=== PATIENT | female | born 1990 | race American Indian/Alaskan Native ===

== ENCOUNTER 2017-07-14 06:32 | Emergency (ER) | payer SELFPAY ==
[2017-07-14 06:46] VITALS: BP 122/81
[2017-07-14 07:11] LABS: Bacteria,Urine 4+ /HPF (Negative); Bilirubin,Urine NEG (Negative); Blood,Urine NEG (Negative); Ketones,Urine NEG (Negative); Leukocyte Esterase,Urine SM (Negative); Mucus,Urine FEW /HPF; Nitrite,Urine NEG (Negative); Protein,Urine <15 mg/dL mg/dL (Negative); Urobilinogen,Urine < 2.0 mg/dL (<2.0)
--- NOTE | 2017-07-14 18:05 | Emergency Department Report ---
Entered by WON AHUMADA, acting as scribe for ЕЛЕНА QUIJANO NP. ED Female HPI - General Chief complaint: Urogenital-Female Stated complaint: POSS UTI/RUGGIERO Time Seen by Provider: 07/14/17 09:16 Source: patient Mode of arrival: Ambulatory Limitations: No Limitations - History of Present Illness Initial comments: This is a 27 y/o female, nontoxic, well nourished in appearance, no acute signs of distress with a PMHx of asthma, sickle cell trait, and anemia presents with an urinary tract infection that began 1 month ago. Aggravated with urination and alleviated with nothing. Associated symptoms includes cloudy urine with a foul odor and dysuria, but she denies hematuria, urinary urgency and frequency, vaginal discharge, vaginal bleeding, back pain, abdominal pain, nausea, vomiting , diarrhea, fever, chills, chest pain, SOB, RUGGIERO or dizziness, numbness, and tingling. Notes she has frequent urinary tract infections, which she states these symptoms feels similar to her previous UTIs. Consumed water and cranberry juice without relief. LMP 07/11/2017. NKDA. [place] Complaint: dysuria Onset/Timin -: month(s) Location: other (vaginal area) Radiation: non-radiating Severity: mild Severity scale (0 -10): 3 Quality: burning Consistency: constant Improves with: none Worsens with: urination Are you Now?: No Last Menstrual Period: 07/11/17 EDC: 04/17/18 Associated Symptoms: denies other symptoms, dysuria, other (cloudy urine with foul odor). denies: vaginal discharge, vaginal bleeding, abdominal pain, nausea /vomiting, fever/chills, headaches, loss of appetite, hematuria, rash, seizure, shortness of breath, syncope, weakness - Related Data Previous Rx's Medication Instructions Recorded Last Taken Type Sulfamethoxazole/Trimethoprim 1 each PO BID #14 tablet 07/14/17 Unknown Rx [Bactrim DS TAB] Allergies Allergy/AdvReac Type Severity Reaction Status Date / Time No Known Allergies Allergy Verified 08/30/16 12:13 ED Review of Systems Comment: All other systems reviewed and negative Constitutional: denies: chills, fever Eyes: denies: eye pain, eye discharge, vision change ENT: denies: ear pain, throat pain Respiratory: denies: cough, orthopnea, shortness of breath, SOB with exertion, SOB at rest, stridor, wheezing Cardiovascular: denies: chest pain, palpitations, dyspnea on exertion, orthopnea , edema, syncope, paroxysmal nocturnal dyspnea Endocrine: no symptoms reported Gastrointestinal: denies: abdominal pain, nausea, vomiting, diarrhea, constipation, hematemesis, melena, hematochezia Genitourinary: dysuria, other (cloudy urine with foul odor). denies: urgency, frequency, hematuria, discharge, abnormal menses, dyspareunia Musculoskeletal: denies: back pain, joint swelling, arthralgia Skin: denies: rash, lesions Neurological: denies: headache, weakness, paresthesias Psychiatric: denies: anxiety, depression Hematological/Lymphatic: denies: easy bleeding, easy bruising ED Past Medical Hx - Past Medical History Previous Medical History?: Yes Hx Sickle Cell Disease: (trait only) Hx Asthma: Yes Additional medical history: anemia - Surgical History Past Surgical History?: No - Family History Family history: no significant - Social History Smoking Status: Current Every Day Smoker Substance Use Type: None - Medications Home Medications: Home Medications Medication Instructions Recorded Confirmed Last Taken Type Sulfamethoxazole/Trimethoprim 1 each PO BID #14 tablet 07/14/17 Unknown Rx [Bactrim DS TAB] ED Physical Exam - General Limitations: No Limitations General appearance: alert, in no apparent distress - Head Head exam: Present: atraumatic, normocephalic - Eye Eye exam: Present: normal appearance, PERRL, EOMI. Absent: scleral icterus, conjunctival injection, nystagmus, periorbital swelling, periorbital tenderness Pupils: Present: normal accommodation - ENT ENT exam: Present: normal exam, normal orophraynx, mucous membranes moist, TM's normal bilaterally, normal external ear exam - Neck Neck exam: Present: normal inspection, full ROM. Absent: tenderness, meningismus, lymphadenopathy, thyromegaly - Respiratory Respiratory exam: Present: normal lung sounds bilaterally. Absent: respiratory distress, wheezes, rales, rhonchi, stridor, chest wall tenderness, accessory muscle use, decreased breath sounds, prolonged expiratory - Cardiovascular Cardiovascular Exam: Present: regular rate, normal rhythm, normal heart sounds. Absent: bradycardia, tachycardia, irregular rhythm, systolic murmur, diastolic murmur, rubs, gallop - GI/Abdominal GI/Abdominal exam: Present: soft, normal bowel sounds. Absent: distended, tenderness, guarding, rebound, rigid - Rectal Rectal exam: Present: deferred - Extremities Exam Extremities exam: Present: normal inspection, full ROM, normal capillary refill. Absent: tenderness, pedal edema, joint swelling, calf tenderness - Back Exam Back exam: Present: normal inspection, full ROM. Absent: tenderness, CVA tenderness (R), CVA tenderness (L), muscle spasm, paraspinal tenderness, vertebral tenderness, rash noted - Neurological Exam Neurological exam: Present: alert, oriented X3, CN II-XII intact, normal gait, reflexes normal. Absent: motor sensory deficit - Psychiatric Psychiatric exam: Present: normal affect, normal mood - Skin Skin exam: Present: warm, dry, intact. Absent: rash ED Course Vital Signs 07/14/17 06:40 Temperature 98.0 F Pulse Rate 73 Respiratory 18 Rate Blood Pressure 122/81 O2 Sat by Pulse 98 Oximetry - Reevaluation(s) Reevaluation #1: 07/14/17 09:52 Patient is speaking in full sentences with no signs of distress noted. ED Disposition Clinical Impression: UTI (urinary tract infection) Qualifiers: Urinary tract infection type: site unspecified Hematuria presence: without hematuria Qualified Code(s): N39.0 - Urinary tract infection, site not specified Disposition: DC-01 TO HOME OR SELFCARE Is pt being admited?: No Does the pt Need Aspirin: No Condition: Stable Instructions: Urinary Tract Infection in Women (ED), Sulfamethoxazole/ Trimethoprim (By mouth) Additional Instructions: Follow-up with a primary care doctor to 3-5 days or if symptoms worsen continue return to emergency room as soon as possible. Prescriptions: Sulfamethoxazole/Trimethoprim [Bactrim DS TAB] 1 each PO BID #14 tablet Referrals: PRIMARY CARE, [Primary Care Provider] - 3-5 Days MOLLY DAMIAN MD [Staff Physician] - 3-5 Days [facility] [Outside] - 3-5 Days [facility] [Outside] - 3-5 Days Forms: Work/School Release Form(ED) This documentation as recorded by the BRANDYN maynard JASMINE,accurately reflects the service I personally performed and the decisions made by ,ЕЛЕНА QUIJANO, JORDANA.
== END 2017-07-14 10:07 | disposition home or self-care (01) ==
LOC: ED 06:32
DX: N39.0 Urinary tract infection, site not specified (principal); J45.909 Unspecified asthma, uncomplicated; F17.210 Nicotine dependence, cigarettes, uncomplicated
CPT/HCPCS: 81001; 81025; 99283

== ENCOUNTER 2019-01-04 22:31 | Inpatient (IN) | payer MEDICAID ==
--- NOTE | 2019-01-04 22:44 | Emergency Department Report ---
Blank Doc - Documentation Documentation: This is a 28 y.o. female that is 34 weeks . Patient spouse states he went to lock the trailer of his semi truck and she was having a seizure when he returned. Patient states she can feel the baby moving but it is slower than usual. There is swelling to upper lip. Patient collapsed to the floor of truck. Ordered labs. Main ER for further evaluation.
[2019-01-04 22:59] LABS: Hematocrit 36.9 % (30.3-42.9); Hemoglobin 12.5 gm/dl (10.1-14.3); Mean Corpuscular HGB Conc 34 % (30-34); Mean Corpuscular Volume 95 fl (79-97); Platelet Count 161 K/mm3 (140-440); Red Cell Distribution Width 14.4 % (13.2-15.2)
[2019-01-04] MEDS ORDERED: MAGNESIUM SULFATE 4GM/100ML 4 GM/100 ML BAG IV ONE (23:01)
[2019-01-04] MEDS ORDERED: APRESOLINE IV ONE (23:01)
[2019-01-04] MEDS ORDERED: MAGNESIUM SULFATE 2GM/50ML 2 GM/50 ML BAG IV ONE ×2 (23:07→23:08)
--- NOTE | 2019-01-04 23:15 | Emergency Department Report ---
ED General Adult HPI - General Chief complaint: Seizure Stated complaint: POSS. SEIZURE Time Seen by Provider: 01/04/19 22:39 Source: patient Mode of arrival: Wheelchair Limitations: Altered Mental Status - History of Present Illness Initial comments: Patient is a 28-year-old female 5 para 4, possibly 35 weeks . Patient care with doctor at [facility]. Patient is riding with her boyfriend, he stated that he stepped down and when he came back patient has a full seizure and patient was on the floor of the truck. Patient denied any history of seizure before. A diagnosis of possible eclampsia has met by me. Patient immediately moved to [facility] in the emergency room. His seizure precaution started. cardiac monitor applied. Patient received 4 g of magnesium sulfate. Hydralazine 10 mg IV given. I immediately consulted and talked to Dr. Mac. Dr. Mac stated that she is on her way to see the patient. No seizure activity noticed in the emergency room but patient is obviously postictal. Severity scale (0 -10): 0 - Related Data Previous Rx's Medication Instructions Recorded Last Taken Type Sulfamethoxazole/Trimethoprim 1 each PO BID #14 tablet 07/14/17 Unknown Rx [Bactrim DS TAB] Allergies Allergy/AdvReac Type Severity Reaction Status Date / Time No Known Allergies Allergy Verified 08/30/16 12:13 ED Review of Systems ROS: Stated complaint: POSS. SEIZURE Other details as noted in HPI Comment: All other systems reviewed and negative Constitutional: denies: chills, fever Respiratory: denies: cough, orthopnea, shortness of breath, SOB with exertion, SOB at rest, wheezing Cardiovascular: denies: chest pain, palpitations Gastrointestinal: denies: abdominal pain, nausea, vomiting, diarrhea Genitourinary: denies: hematuria Neurological: denies: headache ED Past Medical Hx - Past Medical History Hx Sickle Cell Disease: (trait only) Hx Asthma: Yes Additional medical history: anemia - Surgical History Past Surgical History?: No - Social History Smoking Status: Never Smoker Substance Use Type: None - Medications Home Medications: Home Medications Medication Instructions Recorded Confirmed Last Taken Type Sulfamethoxazole/Trimethoprim 1 each PO BID #14 tablet 07/14/17 Unknown Rx [Bactrim DS TAB] ED Physical Exam - General Limitations: Altered Mental Status General appearance: alert, anxious, postictal - Head Head exam: Present: atraumatic - ENT ENT exam: Present: mucous membranes moist, other (upper lip swelling) - Neck Neck exam: Present: normal inspection, full ROM. Absent: tenderness, meningismus, lymphadenopathy, thyromegaly - Respiratory Respiratory exam: Present: normal lung sounds bilaterally. Absent: respiratory distress, wheezes, rales, rhonchi, chest wall tenderness, accessory muscle use, decreased breath sounds, prolonged expiratory - Cardiovascular Cardiovascular Exam: Present: tachycardia - GI/Abdominal GI/Abdominal exam: Present: soft, normal bowel sounds, organomegaly. Absent: distended, tenderness, guarding, rebound, rigid - Extremities Exam Extremities exam: Present: normal inspection, full ROM - Back Exam Back exam: Present: normal inspection, full ROM. Absent: CVA tenderness (L) - Neurological Exam Neurological exam: Present: alert, altered - Skin Skin exam: Present: warm, intact ED Course Vital Signs 01/04/19 01/04/19 01/04/19 22:40 23:19 23:50 Temperature 98.8 F Pulse Rate 128 H 80 97 H Respiratory 20 19 Rate Blood Pressure 156/104 137/97 Blood Pressure 139/83 [Left] O2 Sat by Pulse 99 99 Oximetry 01/05/19 01/05/19 01/05/19 00:30 00:36 00:50 Temperature Pulse Rate 93 H 81 Respiratory 17 19 20 Rate Blood Pressure 165/99 Blood Pressure 156/101 [Left] O2 Sat by Pulse 96 99 Oximetry ED Medical Decision Making - Lab Data Result diagrams: 01/04/19 23:06 01/04/19 22:45 Critical Care Time: Yes Critical care time in (mins) excluding proc time.: 30 Critical care attestation.: If time is entered above; I have spent that time in minutes in the direct care of this critically ill patient, excluding procedure time. ED Disposition Clinical Impression: Eclampsia affecting in third trimester, 33 weeks gestation of pregnan cy Disposition: -09 OP ADMIT IP TO THIS HOSP Is pt being admited?: Yes Condition: Stable
[2019-01-04 23:20] LABS: BUN/Creatinine Ratio 11; Blood Urea Nitrogen 11 mg/dL (7-17); Calcium 9.4 mg/dL (8.4-10.2); Hemolysis Index 9
[2019-01-04 23:42] LABS: Basophils # (Auto) 0.1 K/mm3 (0.0-0.1); Basophils % (Auto) 0.9 % (0.0-1.8); Eosinophils # (Auto) 0.1 K/mm3 (0.0-0.4); Eosinophils % (Auto) 0.8 % (0.0-4.3); Hemoglobin 11.3 gm/dl (10.1-14.3); Lymphocytes # (Auto) 2.3 K/mm3 (1.2-5.4); Lymphocytes % (Auto) 28.9 % (13.4-35.0); Mean Corpuscular HGB Conc 34 % (30-34); Mean Corpuscular Volume 93 fl (79-97); Monocytes # (Auto) 0.5 K/mm3 (0.0-0.8); Monocytes % (Auto) 6.3 % (0.0-7.3); Platelet Count 150 K/mm3 (140-440); Red Blood Count 3.55 M/mm3 (3.65-5.03); Red Cell Distribution Width 14.1 % (13.2-15.2)
[2019-01-04 23:46] LABS: Alanine Aminotransferase 30 units/L (7-56); Albumin 3.3 g/dL (3.9-5)
[2019-01-04 23:53] LABS: INR 0.83 (0.87-1.13)
[2019-01-04 23:56] LABS: Bilirubin,Direct < 0.2 mg/dL (0-0.2)
[2019-01-04 23:58] LABS: Partial Thromboplastin Time 25.6 Sec. (24.2-36.6)
--- NOTE | 2019-01-05 00:07 | Ultrasound Report ---
FINAL REPORT EXAM: US OB > = 14 WEEKS FETUS HISTORY: , possible 30 weeks, eclampsia COMPARISON: None available. TECHNIQUE: Several real-time grayscale and color Doppler images were obtained. FINDINGS: Single live IUP. Estimated gestational age 33 weeks 0 days. Estimated delivery date February 22, 2019. F etal heart rate 138 beats per minute. Estimated gestational age 1924 grams. BPD 8.3 centimeters 33 weeks 4 days. Head circumference 30.2 centimeters 33 weeks 4 days. Abdominal circumference 26.6 centimeters 30 weeks 5 days. New 9 femoral length 6.6 centimeters 33 wee ks 6 days. position cephalic. Placenta location posterior. No placenta previa. Cervix is closed and measur es 4.1 centimeters in length. SIENNA within normal limits 8.7 centimeters. Visualized heart, stomach, urinary bladder, kidneys, cerebral ventricles are unremarkable. Thre e-vessel umbilical cord identified. Abdominal cord insertion not visualized. Entire spine not visuali zed. IMPRESSION: Single live IUP. Estimated gestational age 33 weeks 0 days. Estimated delivery date February 22, 2019. No gross or placental abnormality. Evaluation of structures somewhat limited due to late gestational age.
--- NOTE | 2019-01-05 00:11 | History and Physical Report ---
History of Present Illness Date of examination: 01/05/19 Date of admission: 01/05/19 Chief complaint: seizure History of present illness: Pt admitted to ED after having seizure witnessed by sixto while when he returned to care to see pt on floor having seizure. He was not at the bedside when I spoke with pt. She states she remembers her head turning to the left side without her control and does not remember after this. She states she passed out. [facility] gives EDC of 02/22/2019 and EGA of 33.0 weeks. Pt did not give me an EDC at my initial interview with her. She has no h/o seizures. BP was elevated on admission at 156/104 but currently is 137/97 after having hydralazine and 4g load of magnesium. All PIH labs are n egative. UA still is uncollected at this time. Will admit pt , given steroids and plan for delivery. Pt has had all vaginal deliveries and fetus is vtx on sono done tonight/this am. I have d/w the diagnosis of eclampsia, pre eclampsia given the elevated blood pressures and no h/o HTN. There was no mention of abruption on sono. Pt tearful as she states "it is too early for the baby to come." However, she was reassurred and advised that if the BP are not controlled that delivery is the only option to treat the pre e/eclampsia. She expressed understanding. Pt is a . She is oriented to place and person at time of my interview and all questions were addressed and answered. 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: denies: abnormal PAP smear Social history: no significant social history - Obstetrical History Expected Date of Delivery: 02/22/19 (by sono done in ED) Actual Gestation: 33 Week(s) 1 Day(s) : 5 Para: 4 Number of Living Children: 4 (all vaginal full term no complications as per pt) Medications and Allergies Allergies Allergy/AdvReac Type Severity Reaction Status Date / Time No Known Allergies Allergy Verified 08/30/16 12:13 Home Medications Medication Instructions Recorded Confirmed Last Taken Type Sulfamethoxazole/Trimethoprim 1 each PO BID #14 tablet 07/14/17 Unknown Rx [Bactrim DS TAB] Active Meds: Active Medications Magnesium Sulfate (Magnesium Sulfate 4gm/100ml) 4 gm in 100 mls @ 25 mls/hr IV ONCE ONE Stop: 01/05/19 03:00 Last Admin: 01/04/19 23:19 Dose: 25 mls/hr Documented by: Review of Systems All systems: negative - Vital Signs Vital signs: Vital Signs Temp Pulse Resp BP Pulse Ox 98.8 F 128 H 20 156/104 99 01/04/19 22:40 01/04/19 22:40 01/04/19 22:40 01/04/19 22:40 01/04/19 22:40 Temp Pulse Resp BP Pulse Ox 98.8 F 80 20 137/97 99 01/04/19 22:40 01/04/19 23:19 01/04/19 22:40 01/04/19 23:19 01/04/19 22:40 - Physical Exam Cardiovascular: Normal S1, Normal S2 Lungs: Positive: Normal air movement Abdomen: Positive: normal appearance, soft Genitourinary (Female): Positive: other (deferred pt denied any bleeding or leakage of fluid) Extremities: Positive: normal. Negative: tenderness, edema - Obstetrical FHR: other (normal on sonogram) Results Result Diagrams: 01/04/19 23:06 01/04/19 22:45 Abnormal lab results 01/04/19 01/04/19 01/04/19 Range/Units 22:45 23:06 23:06 RBC 3.55 L (3.65-5.03) M/mm3 PT (12.2-14.9) Sec. INR (0.87-1.13) Sodium 136 L (137-145) mmol/L Carbon Dioxide 15 L (22-30) mmol/L Alkaline Phosphatase 150 H (35-129) units/L Albumin 3.3 L (3.9-5) g/dL 01/04/19 Range/Units 23:06 RBC (3.65-5.03) M/mm3 PT 11.9 L (12.2-14.9) Sec. INR 0.83 L (0.87-1.13) Sodium (137-145) mmol/L Carbon Dioxide (22-30) mmol/L Alkaline Phosphatase (35-129) units/L Albumin (3.9-5) g/dL All other labs normal. Assessment and Plan - Patient Problems (1) 33 weeks gestation of Current Visit: Yes Status: Acute (2) Seizure Current Visit: Yes Status: Acute (3) Eclampsia affecting in third trimester Current Visit: Yes Status: Acute Plan to address problem: -admit -vtx on sonogram -NICU consult - steroids -continued close observation. -attempt to obtain records
[2019-01-05] MEDS ORDERED: MINERAL OIL PO PRN (00:14)
[2019-01-05] MEDS ORDERED: XYLOCAINE 2% INFILTRATI ONE (00:14)
[2019-01-05] MEDS ORDERED: BRETHINE SUB-Q PRN (00:14)
[2019-01-05] MEDS ORDERED: BRETHINE IVP PRN (00:14)
[2019-01-05] MEDS ORDERED: CERVIDIL VG ONE (00:55)
--- NOTE | 2019-01-05 00:58 | Event Note ---
Date: 01/05/19 Given pt h/o seems to be c/w having new onset seizures in addition to blood pressures in the sever range, will proceed with IOL at this time for eclampsia. Will place cervidil as pt has had 4 other vaginal deliveries and sono shows baby is VTX. I d/w need for IOL due to her clinical status and her gestational age during my initial interview with pt in the ED. She expressed understanding.
[2019-01-05] MEDS ORDERED: NORMODYNE IV ONE (00:59)
[2019-01-05] MEDS ORDERED: NORMODYNE PO SCH (01:00)
[2019-01-05] MEDS ORDERED: CELESTONE SOLUSPAN IM SCH (01:00)
[2019-01-05] MEDS ORDERED: PITOCin/NS 20 UNIT/1000ML DRIP 20 UNITS/1,000 ML BAG IV SCH (01:00)
[2019-01-05] MEDS ORDERED: PITOCin/NS 30 UNIT/500ML 30 UNITS/500 ML BAG IV SCH (01:00)
[2019-01-05 01:32] LABS: Amphetamine Screen,Urine PRESUMPTIVE NEGATIVE; Benzodiazepines Screen,Urine PRESUMPTIVE NEGATIVE; Cannabinoid Screen,Urine PRESUMPTIVE NEGATIVE; Cocaine Screen,Urine PRESUMPTIVE NEGATIVE; Methadone Screen,Urine PRESUMPTIVE NEGATIVE; Opiate Screen,Urine PRESUMPTIVE NEGATIVE
[2019-01-05] MEDS: LACTATED RINGERS 1,000 ML IV SCH ×2 (02:10→12:17)
[2019-01-05] MEDS: MAGNESIUM SULFATE 40GM/1000ML 40 GM/1,000 ML BAG IV SCH (02:11)
[2019-01-05 03:51] LABS: Bilirubin,Urine NEG (Negative); Blood,Urine NEG (Negative); Color,Urine Yellow (Yellow); Mucus,Urine FEW /HPF
[2019-01-05] MEDS ORDERED: AMPICILLIN/NS 2 GM/100 ML 2 GM/100 ML BAG IV ONE (06:44)
--- NOTE | 2019-01-05 08:09 | Progress Note ---
Assessment and Plan - Patient Problems (1) 35 weeks gestation of Current Visit: Yes Status: Acute Plan to address problem: Will attempt to obtain records from her previous provider (2) Eclampsia affecting in third trimester Current Visit: Yes Status: Acute Plan to address problem: Diagnosis explained, plan of care discussed, questions encouraged and answered. She voiced understanding and agrees with proceeding with delivery. Subjective - Subjective Date of service: 01/05/19 Interval history: History reviewed with patient Patient reports: movement normal, contractions, no new complaints Objective - Vital Signs Vital Signs: Vital Signs - 12hr 01/04/19 01/04/19 01/04/19 22:40 23:19 23:50 Temperature 98.8 F Pulse Rate 128 H 80 97 H Respiratory 20 19 Rate Blood Pressure 156/104 137/97 Blood Pressure 139/83 [Left] O2 Sat by Pulse 99 99 Oximetry 01/05/19 01/05/19 01/05/19 00:30 00:36 00:50 Temperature Pulse Rate 93 H 81 Respiratory 17 19 20 Rate Blood Pressure 165/99 Blood Pressure 156/101 [Left] O2 Sat by Pulse 96 99 Oximetry 01/05/19 01/05/19 01/05/19 01:26 02:02 02:45 Temperature Pulse Rate 81 88 97 H Respiratory Rate Blood Pressure 156/100 140/88 132/86 Blood Pressure [Left] O2 Sat by Pulse Oximetry 01/05/19 01/05/19 01/05/19 02:59 03:14 03:29 Temperature Pulse Rate 95 H 108 H 89 Respiratory Rate Blood Pressure 132/83 175/99 159/96 Blood Pressure [Left] O2 Sat by Pulse Oximetry 01/05/19 01/05/19 01/05/19 03:30 03:44 03:59 Temperature Pulse Rate 88 95 H 81 Respiratory Rate Blood Pressure 146/94 152/95 156/96 Blood Pressure [Left] O2 Sat by Pulse Oximetry 01/05/19 01/05/19 01/05/19 04:15 04:29 04:44 Temperature Pulse Rate 80 76 78 Respiratory Rate Blood Pressure 176/102 137/75 133/73 Blood Pressure [Left] O2 Sat by Pulse Oximetry 01/05/19 01/05/19 01/05/19 04:59 05:14 05:30 Temperature Pulse Rate 85 83 87 Respiratory Rate Blood Pressure 125/68 160/91 143/81 Blood Pressure [Left] O2 Sat by Pulse Oximetry 01/05/19 01/05/19 01/05/19 05:44 05:59 06:14 Temperature Pulse Rate 89 95 H 95 H Respiratory Rate Blood Pressure 149/84 150/87 152/99 Blood Pressure [Left] O2 Sat by Pulse Oximetry 01/05/19 01/05/19 01/05/19 06:29 06:44 07:00 Temperature Pulse Rate 97 H 96 H 102 H Respiratory Rate Blood Pressure 135/86 134/83 152/96 Blood Pressure [Left] O2 Sat by Pulse Oximetry 01/05/19 01/05/19 01/05/19 07:14 07:29 07:45 Temperature Pulse Rate 101 H 96 H 102 H Respiratory Rate Blood Pressure 137/86 142/85 150/97 Blood Pressure [Left] O2 Sat by Pulse Oximetry 01/05/19 01/05/19 07:49 07:59 Temperature Pulse Rate 96 H 93 H Respiratory Rate Blood Pressure 130/78 153/90 Blood Pressure [Left] O2 Sat by Pulse Oximetry - Exam Breasts: deferred Cardiovascular: Regular rate Lungs: Normal air movement Abdomen: Present: soft. Absent: tenderness Vulva: both: normal Uterus: Present: fundal height above umbilicus. Absent: tenderness FHR: category 1 Cervical Dilatation: 4 Cervical Effacement Percentage: 70 station: -2 Uterine Contraction Pattern: Absent Extremities: normal Deep Tendon Reflex Grade: Normal +2 - Labs Labs: Abnormal Labs 01/04/19 01/04/19 01/04/19 22:45 23:06 23:06 RBC 3.55 L PT INR Sodium 136 L Carbon Dioxide 15 L Magnesium Alkaline Phosphatase 150 H Lactate Dehydrogenase Albumin 3.3 L 01/04/19 01/04/19 01/05/19 23:06 23:06 06:14 RBC PT 11.9 L INR 0.83 L Sodium Carbon Dioxide Magnesium 5.40 H Alkaline Phosphatase Lactate Dehydrogenase 249 H Albumin Laboratory Results - last 24 hr 01/04/19 01/04/19 01/04/19 22:45 22:45 23:06 WBC 9.6 7.9 RBC 3.90 3.55 L Hgb 12.5 11.3 Hct 36.9 33.0 MCV 95 93 MCH 32 32 MCHC 34 34 RDW 14.4 14.1 Plt Count 161 150 Lymph % (Auto) 28.9 [place] % (Auto) 6.3 Eos % (Auto) 0.8 Baso % (Auto) 0.9 Lymph # 2.3 [place] # 0.5 Eos # 0.1 Baso # 0.1 Seg Neutrophils % 63.1 Seg Neutrophils # 5.0 PT INR APTT Sodium 136 L Potassium 4.1 Chloride 101.3 Carbon Dioxide 15 L Anion Gap 24 BUN 11 Creatinine 1.0 Estimated GFR > 60 BUN/Creatinine Ratio 11 Glucose 82 POC Glucose Calcium 9.4 Magnesium Total Bilirubin Direct Bilirubin AST ALT Alkaline Phosphatase Lactate Dehydrogenase Total Protein Albumin Albumin/Globulin Ratio Urine Color Urine Turbidity Urine pH Ur Specific [place] Urine Protein Urine Glucose (UA) Urine Ketones Urine Blood Urine Nitrite Urine Bilirubin Urine Urobilinogen Ur Leukocyte Esterase Urine WBC (Auto) Urine RBC (Auto) U Epithel Cells (Auto) Urine Mucus Urine Opiates Screen Urine Methadone Screen Ur Barbiturates Screen Ur Phencyclidine Scrn Ur Amphetamines Screen U Benzodiazepines Scrn Urine Cocaine Screen U Marijuana (THC) Screen Drugs of Abuse Note Blood Type Antibody Screen Antibody Identification 01/04/19 01/04/19 01/04/19 23:06 23:06 23:06 WBC RBC Hgb Hct MCV MCH MCHC RDW Plt Count Lymph % (Auto) [place] % (Auto) Eos % (Auto) Baso % (Auto) Lymph # [place] # Eos # Baso # Seg Neutrophils % Seg Neutrophils # PT 11.9 L INR 0.83 L APTT 25.6 Sodium Potassium Chloride Carbon Dioxide Anion Gap BUN Creatinine Estimated GFR BUN/Creatinine Ratio Glucose POC Glucose Calcium Magnesium Total Bilirubin 0.40 Direct Bilirubin < 0.2 AST 29 ALT 30 Alkaline Phosphatase 150 H Lactate Dehydrogenase 249 H Total Protein 6.6 Albumin 3.3 L Albumin/Globulin Ratio 1.0 Urine Color Urine Turbidity Urine pH Ur Specific [place] Urine Protein Urine Glucose (UA) Urine Ketones Urine Blood Urine Nitrite Urine Bilirubin Urine Urobilinogen Ur Leukocyte Esterase Urine WBC (Auto) Urine RBC (Auto) U Epithel Cells (Auto) Urine Mucus Urine Opiates Screen Urine Methadone Screen Ur Barbiturates Screen Ur Phencyclidine Scrn Ur Amphetamines Screen U Benzodiazepines Scrn Urine Cocaine Screen U Marijuana (THC) Screen Drugs of Abuse Note Blood Type Antibody Screen Antibody Identification 01/04/19 01/04/19 01/05/19 23:11 23:40 01:00 WBC RBC Hgb Hct MCV MCH MCHC RDW Plt Count Lymph % (Auto) [place] % (Auto) Eos % (Auto) Baso % (Auto) Lymph # [place] # Eos # Baso # Seg Neutrophils % Seg Neutrophils # PT INR APTT Sodium Potassium Chloride Carbon Dioxide Anion Gap BUN Creatinine Estimated GFR BUN/Creatinine Ratio Glucose POC Glucose 83 Calcium Magnesium Total Bilirubin Direct Bilirubin AST ALT Alkaline Phosphatase Lactate Dehydrogenase Total Protein Albumin Albumin/Globulin Ratio Urine Color Urine Turbidity Urine pH Ur Specific [place] Urine Protein Urine Glucose (UA) Urine Ketones Urine Blood Urine Nitrite Urine Bilirubin Urine Urobilinogen Ur Leukocyte Esterase Urine WBC (Auto) Urine RBC (Auto) U Epithel Cells (Auto) Urine Mucus Urine Opiates Screen Presumptive negative Urine Methadone Screen Presumptive negative Ur Barbiturates Screen Presumptive negative Ur Phencyclidine Scrn Presumptive negative Ur Amphetamines Screen Presumptive negative U Benzodiazepines Scrn Presumptive negative Urine Cocaine Screen Presumptive negative U Marijuana (THC) Screen Presumptive negative Drugs of Abuse Note Disclamer Blood Type O NEGATIVE Antibody Screen Positive Antibody Identification Anti-D (Actively Aquired) 01/05/19 01/05/19 01:09 06:14 WBC RBC Hgb Hct MCV MCH MCHC RDW Plt Count Lymph % (Auto) [place] % (Auto) Eos % (Auto) Baso % (Auto) Lymph # [place] # Eos # Baso # Seg Neutrophils % Seg Neutrophils # PT INR APTT Sodium Potassium Chloride Carbon Dioxide Anion Gap BUN Creatinine Estimated GFR BUN/Creatinine Ratio Glucose POC Glucose Calcium Magnesium 5.40 H Total Bilirubin Direct Bilirubin AST ALT Alkaline Phosphatase Lactate Dehydrogenase Total Protein Albumin Albumin/Globulin Ratio Urine Color Yellow Urine Turbidity Clear Urine pH 5.0 Ur Specific [place] 1.012 Urine Protein 30 mg/dl Urine Glucose (UA) Neg Urine Ketones Neg Urine Blood Neg Urine Nitrite Neg Urine Bilirubin Neg Urine Urobilinogen 2.0 Ur Leukocyte Esterase Neg Urine WBC (Auto) 1.0 Urine RBC (Auto) 1.0 U Epithel Cells (Auto) < 1.0 Urine Mucus Few Urine Opiates Screen Urine Methadone Screen Ur Barbiturates Screen Ur Phencyclidine Scrn Ur Amphetamines Screen U Benzodiazepines Scrn Urine Cocaine Screen U Marijuana (THC) Screen Drugs of Abuse Note Blood Type Antibody Screen Antibody Identification
[2019-01-05] MEDS ORDERED: AMPICILLIN/NS 1 GM/50 ML 1 GM/50 ML BAG IV SCH (10:00)
[2019-01-05] MEDS ORDERED: NARCAN 2 MG/2 ML IV PRN (10:30)
[2019-01-05] MEDS ORDERED: fentaNYL-BUPIV 2 MCG/ML-0.125% 200 MCG/100 ML BAG EPIDURAL SCH (11:00)
[2019-01-05 11:01] LABS: Hematocrit 33.7 % (30.3-42.9); Hemoglobin 11.4 gm/dl (10.1-14.3); Mean Corpuscular HGB Conc 34 % (30-34); Mean Corpuscular Volume 93 fl (79-97); Platelet Count 155 K/mm3 (140-440); Red Blood Count 3.64 M/mm3 (3.65-5.03); Red Cell Distribution Width 14.5 % (13.2-15.2)
[2019-01-05] MEDS ORDERED: LIDOCAINE 1.5%/EPI 1:200,000 INFILTRATI ONE (11:53)
[2019-01-05] MEDS ORDERED: SUBLIMAZE ONE (11:55)
[2019-01-05] MEDS ORDERED: BICITRA ONE (12:05)
--- NOTE | 2019-01-05 13:19 | Progress Note ---
Assessment and Plan BP 140/ 90-80 Denies any RUGGIERO, blurred vision, chest pain. Pit @ 8mu will increase per protocol SVE cervix is more anterior than previous exam 4,70,-2 Comfortable with epidural, Re-eval as needed Subjective - Subjective Date of service: 01/05/19 (comfortable with epidural) Principal diagnosis: s/p eclamptic seizure @ 34.6 weeks Patient reports: movement normal, contractions, no new complaints Objective - Vital Signs Vital Signs: Vital Signs - 12hr 01/05/19 01/05/19 01/05/19 01:26 02:02 02:45 Pulse Rate 81 88 97 H Blood Pressure 156/100 140/88 132/86 O2 Sat by Pulse Oximetry 01/05/19 01/05/19 01/05/19 02:59 03:14 03:29 Pulse Rate 95 H 108 H 89 Blood Pressure 132/83 175/99 159/96 O2 Sat by Pulse Oximetry 01/05/19 01/05/19 01/05/19 03:30 03:44 03:59 Pulse Rate 88 95 H 81 Blood Pressure 146/94 152/95 156/96 O2 Sat by Pulse Oximetry 01/05/19 01/05/19 01/05/19 04:15 04:29 04:44 Pulse Rate 80 76 78 Blood Pressure 176/102 137/75 133/73 O2 Sat by Pulse Oximetry 01/05/19 01/05/19 01/05/19 04:59 05:14 05:30 Pulse Rate 85 83 87 Blood Pressure 125/68 160/91 143/81 O2 Sat by Pulse Oximetry 01/05/19 01/05/19 01/05/19 05:44 05:59 06:14 Pulse Rate 89 95 H 95 H Blood Pressure 149/84 150/87 152/99 O2 Sat by Pulse Oximetry 01/05/19 01/05/19 01/05/19 06:29 06:44 07:00 Pulse Rate 97 H 96 H 102 H Blood Pressure 135/86 134/83 152/96 O2 Sat by Pulse Oximetry 01/05/19 01/05/19 01/05/19 07:14 07:29 07:45 Pulse Rate 101 H 96 H 102 H Blood Pressure 137/86 142/85 150/97 O2 Sat by Pulse Oximetry 01/05/19 01/05/19 01/05/19 07:49 07:59 08:14 Pulse Rate 96 H 93 H 93 H Blood Pressure 130/78 153/90 123/80 O2 Sat by Pulse Oximetry 01/05/19 01/05/19 01/05/19 08:29 08:44 08:57 Pulse Rate 95 H 97 H 98 H Blood Pressure 131/84 128/79 O2 Sat by Pulse 97 Oximetry 01/05/19 01/05/19 01/05/19 09:00 09:02 09:08 Pulse Rate 89 93 H 87 Blood Pressure 144/88 O2 Sat by Pulse 98 98 Oximetry 01/05/19 01/05/19 01/05/19 09:13 09:14 09:18 Pulse Rate 85 83 81 Blood Pressure 128/72 O2 Sat by Pulse 97 97 Oximetry 01/05/19 01/05/19 01/05/19 09:23 09:28 09:29 Pulse Rate 84 85 85 Blood Pressure 136/78 O2 Sat by Pulse 96 97 94 Oximetry 01/05/19 01/05/19 01/05/19 09:33 09:38 09:43 Pulse Rate 83 80 83 Blood Pressure O2 Sat by Pulse 97 97 97 Oximetry 01/05/19 01/05/19 01/05/19 09:44 09:48 09:53 Pulse Rate 81 84 92 H Blood Pressure 123/70 O2 Sat by Pulse 97 98 Oximetry 01/05/19 01/05/19 01/05/19 09:58 09:59 10:03 Pulse Rate 96 H 93 H Blood Pressure 132/78 O2 Sat by Pulse 95 86 Oximetry 01/05/19 01/05/19 01/05/19 10:04 10:08 10:10 Pulse Rate 94 H 86 89 Blood Pressure O2 Sat by Pulse 90 96 94 Oximetry 01/05/19 01/05/19 01/05/19 10:13 10:14 10:47 Pulse Rate 89 86 85 Blood Pressure 131/79 140/85 O2 Sat by Pulse 96 97 Oximetry 01/05/19 01/05/19 01/05/19 10:52 10:57 10:59 Pulse Rate 84 85 79 Blood Pressure 136/80 O2 Sat by Pulse 97 99 Oximetry 01/05/19 01/05/19 01/05/19 11:02 11:07 11:12 Pulse Rate 89 85 82 Blood Pressure O2 Sat by Pulse 98 97 96 Oximetry 01/05/19 01/05/19 01/05/19 11:14 11:17 11:22 Pulse Rate 83 82 78 Blood Pressure 129/77 O2 Sat by Pulse 96 96 Oximetry 01/05/19 01/05/19 01/05/19 11:27 11:30 11:32 Pulse Rate 84 79 83 Blood Pressure 130/74 O2 Sat by Pulse 95 95 Oximetry 01/05/19 01/05/19 01/05/19 11:37 11:42 11:44 Pulse Rate 84 85 78 Blood Pressure 134/77 O2 Sat by Pulse 95 95 Oximetry 01/05/19 01/05/19 01/05/19 11:47 11:52 12:00 Pulse Rate 87 88 112 H Blood Pressure 176/104 O2 Sat by Pulse 95 95 Oximetry 01/05/19 01/05/19 01/05/19 12:14 12:24 12:29 Pulse Rate 112 H 106 H 107 H Blood Pressure 166/85 145/86 140/86 O2 Sat by Pulse Oximetry 01/05/19 01/05/19 01/05/19 12:44 12:49 12:54 Pulse Rate 100 H 102 H 104 H Blood Pressure 140/90 O2 Sat by Pulse 99 97 Oximetry 01/05/19 01/05/19 01/05/19 12:59 13:04 13:09 Pulse Rate 97 H 99 H 93 H Blood Pressure 144/90 O2 Sat by Pulse 97 97 97 Oximetry - Exam Breasts: deferred Cardiovascular: Regular rate Lungs: Clear to auscultation Abdomen: Present: normal appearance, soft. Absent: distention, tenderness Uterus: Present: normal FHR: auscultation normal, category 1 Uterine Contraction Monitor Mode: External Cervical Dilatation: 4 Cervical Effacement Percentage: 70 station: -2 Uterine Contraction Pattern: Regular Uterine Tone Measurement Phase: Resting Uterine Contraction Intensity: Moderate Extremities: edema Deep Tendon Reflex Grade: Normal +2 - Labs Labs: Abnormal Labs 01/04/19 01/04/19 01/04/19 22:45 23:06 23:06 WBC RBC 3.55 L PT INR Sodium 136 L Carbon Dioxide 15 L Magnesium Alkaline Phosphatase 150 H Lactate Dehydrogenase Albumin 3.3 L 01/04/19 01/04/19 01/05/19 23:06 23:06 06:14 WBC RBC PT 11.9 L INR 0.83 L Sodium Carbon Dioxide Magnesium 5.40 H Alkaline Phosphatase Lactate Dehydrogenase 249 H Albumin 01/05/19 10:30 WBC 11.6 H RBC 3.64 L PT INR Sodium Carbon Dioxide Magnesium Alkaline Phosphatase Lactate Dehydrogenase Albumin Laboratory Results - last 24 hr 01/04/19 01/04/19 01/04/19 22:45 22:45 23:06 WBC 9.6 7.9 RBC 3.90 3.55 L Hgb 12.5 11.3 Hct 36.9 33.0 MCV 95 93 MCH 32 32 MCHC 34 34 RDW 14.4 14.1 Plt Count 161 150 Lymph % (Auto) 28.9 [place] % (Auto) 6.3 Eos % (Auto) 0.8 Baso % (Auto) 0.9 Lymph # 2.3 [place] # 0.5 Eos # 0.1 Baso # 0.1 Seg Neutrophils % 63.1 Seg Neutrophils # 5.0 PT INR APTT Sodium 136 L Potassium 4.1 Chloride 101.3 Carbon Dioxide 15 L Anion Gap 24 BUN 11 Creatinine 1.0 Estimated GFR > 60 BUN/Creatinine Ratio 11 Glucose 82 POC Glucose Calcium 9.4 Magnesium Total Bilirubin Direct Bilirubin AST ALT Alkaline Phosphatase Lactate Dehydrogenase Total Protein Albumin Albumin/Globulin Ratio Urine Color Urine Turbidity Urine pH Ur Specific [place] Urine Protein Urine Glucose (UA) Urine Ketones Urine Blood Urine Nitrite Urine Bilirubin Urine Urobilinogen Ur Leukocyte Esterase Urine WBC (Auto) Urine RBC (Auto) U Epithel Cells (Auto) Urine Mucus Urine Opiates Screen Urine Methadone Screen Ur Barbiturates Screen Ur Phencyclidine Scrn Ur Amphetamines Screen U Benzodiazepines Scrn Urine Cocaine Screen U Marijuana (THC) Screen Drugs of Abuse Note RPR Blood Type Antibody Screen Antibody Identification 01/04/19 01/04/19 01/04/19 23:06 23:06 23:06 WBC RBC Hgb Hct MCV MCH MCHC RDW Plt Count Lymph % (Auto) [place] % (Auto) Eos % (Auto) Baso % (Auto) Lymph # [place] # Eos # Baso # Seg Neutrophils % Seg Neutrophils # PT 11.9 L INR 0.83 L APTT 25.6 Sodium Potassium Chloride Carbon Dioxide Anion Gap BUN Creatinine Estimated GFR BUN/Creatinine Ratio Glucose POC Glucose Calcium Magnesium Total Bilirubin 0.40 Direct Bilirubin < 0.2 AST 29 ALT 30 Alkaline Phosphatase 150 H Lactate Dehydrogenase 249 H Total Protein 6.6 Albumin 3.3 L Albumin/Globulin Ratio 1.0 Urine Color Urine Turbidity Urine pH Ur Specific [place] Urine Protein Urine Glucose (UA) Urine Ketones Urine Blood Urine Nitrite Urine Bilirubin Urine Urobilinogen Ur Leukocyte Esterase Urine WBC (Auto) Urine RBC (Auto) U Epithel Cells (Auto) Urine Mucus Urine Opiates Screen Urine Methadone Screen Ur Barbiturates Screen Ur Phencyclidine Scrn Ur Amphetamines Screen U Benzodiazepines Scrn Urine Cocaine Screen U Marijuana (THC) Screen Drugs of Abuse Note RPR Blood Type Antibody Screen Antibody Identification 01/04/19 01/04/19 01/05/19 23:11 23:40 00:35 WBC RBC Hgb Hct MCV MCH MCHC RDW Plt Count Lymph % (Auto) [place] % (Auto) Eos % (Auto) Baso % (Auto) Lymph # [place] # Eos # Baso # Seg Neutrophils % Seg Neutrophils # PT INR APTT Sodium Potassium Chloride Carbon Dioxide Anion Gap BUN Creatinine Estimated GFR BUN/Creatinine Ratio Glucose POC Glucose 83 Calcium Magnesium Total Bilirubin Direct Bilirubin AST ALT Alkaline Phosphatase Lactate Dehydrogenase Total Protein Albumin Albumin/Globulin Ratio Urine Color Urine Turbidity Urine pH Ur Specific [place] Urine Protein Urine Glucose (UA) Urine Ketones Urine Blood Urine Nitrite Urine Bilirubin Urine Urobilinogen Ur Leukocyte Esterase Urine WBC (Auto) Urine RBC (Auto) U Epithel Cells (Auto) Urine Mucus Urine Opiates Screen Urine Methadone Screen Ur Barbiturates Screen Ur Phencyclidine Scrn Ur Amphetamines Screen U Benzodiazepines Scrn Urine Cocaine Screen U Marijuana (THC) Screen Drugs of Abuse Note RPR Nonreactive Blood Type O NEGATIVE Antibody Screen Positive Antibody Identification Anti-D (Actively Aquired) 01/05/19 01/05/19 01/05/19 01:00 01:09 06:14 WBC RBC Hgb Hct MCV MCH MCHC RDW Plt Count Lymph % (Auto) [place] % (Auto) Eos % (Auto) Baso % (Auto) Lymph # [place] # Eos # Baso # Seg Neutrophils % Seg Neutrophils # PT INR APTT Sodium Potassium Chloride Carbon Dioxide Anion Gap BUN Creatinine Estimated GFR BUN/Creatinine Ratio Glucose POC Glucose Calcium Magnesium 5.40 H Total Bilirubin Direct Bilirubin AST ALT Alkaline Phosphatase Lactate Dehydrogenase Total Protein Albumin Albumin/Globulin Ratio Urine Color Yellow Urine Turbidity Clear Urine pH 5.0 Ur Specific [place] 1.012 Urine Protein 30 mg/dl Urine Glucose (UA) Neg Urine Ketones Neg Urine Blood Neg Urine Nitrite Neg Urine Bilirubin Neg Urine Urobilinogen 2.0 Ur Leukocyte Esterase Neg Urine WBC (Auto) 1.0 Urine RBC (Auto) 1.0 U Epithel Cells (Auto) < 1.0 Urine Mucus Few Urine Opiates Screen Presumptive negative Urine Methadone Screen Presumptive negative Ur Barbiturates Screen Presumptive negative Ur Phencyclidine Scrn Presumptive negative Ur Amphetamines Screen Presumptive negative U Benzodiazepines Scrn Presumptive negative Urine Cocaine Screen Presumptive negative U Marijuana (THC) Screen Presumptive negative Drugs of Abuse Note Disclamer RPR Blood Type Antibody Screen Antibody Identification 01/05/19 10:30 WBC 11.6 H RBC 3.64 L Hgb 11.4 Hct 33.7 MCV 93 MCH 31 MCHC 34 RDW 14.5 Plt Count 155 Lymph % (Auto) [place] % (Auto) Eos % (Auto) Baso % (Auto) Lymph # [place] # Eos # Baso # Seg Neutrophils % Seg Neutrophils # PT INR APTT Sodium Potassium Chloride Carbon Dioxide Anion Gap BUN Creatinine Estimated GFR BUN/Creatinine Ratio Glucose POC Glucose Calcium Magnesium Total Bilirubin Direct Bilirubin AST ALT Alkaline Phosphatase Lactate Dehydrogenase Total Protein Albumin Albumin/Globulin Ratio Urine Color Urine Turbidity Urine pH Ur Specific [place] Urine Protein Urine Glucose (UA) Urine Ketones Urine Blood Urine Nitrite Urine Bilirubin Urine Urobilinogen Ur Leukocyte Esterase Urine WBC (Auto) Urine RBC (Auto) U Epithel Cells (Auto) Urine Mucus Urine Opiates Screen Urine Methadone Screen Ur Barbiturates Screen Ur Phencyclidine Scrn Ur Amphetamines Screen U Benzodiazepines Scrn Urine Cocaine Screen U Marijuana (THC) Screen Drugs of Abuse Note RPR Blood Type Antibody Screen Antibody Identification
--- NOTE | 2019-01-05 15:32 | Anesthesia Day of Surgery ---
Anesthesia Day of Surgery - Day of Surgery Patient Examined: Yes Patient H&P Reviewed: Yes Patient is NPO: Yes Beta Blockers: No Cardiac Clearance: No Pulmonary Clearance: No Nabeel's Test: N/A
--- NOTE | 2019-01-05 15:32 | Anesthesia Consultation ---
Anesthesia Consult and Med Hx - Airway Anesthetic Teeth Evaluation: Good ROM Head & Neck: Adequate Mental/Hyoid Distance: Adequate Mallampati Class: Class II Intubation Access Assessment: Good - Pulmonary Exam CTA: Yes - Pre-Operative Health Status ASA Pre-Surgery Classification: ASA3 Proposed Anesthetic Plan: Epidural - Pulmonary Hx Smoking: No Hx Asthma: Yes Hx Respiratory Symptoms: No SOB: No COPD: No Home Oxygen Therapy: No Hx Pneumonia: No Hx Sleep Apnea: No - Cardiovascular System Hx Hypertension: Yes Hx Coronary Artery Disease: No Hx Heart Attack/AMI: No Hx Angina: No Hx Percutaneous Transluminal Coronary Angioplasty (PTCA): No Hx Cardia Arrhythmia: No Hx Pacemaker: No Hx Internal Defibrillator: No Hx Valvular Heart Disease: No Hx Heart Murmur: No - Central Nervous System Hx Neuromuscular Disorder: No Hx Seizures: Yes (01/04/2019) CVA: No Hx Back Pain: No Hx Psychiatric Problems: No - Gastrointestinal Hx Ulcer: No Hx Gastroesophageal Reflux Disease: No - Endocrine Hx Renal Disease: No Hx End Stage Renal Disease: No Hx Cirrhosis: No Hx Liver Disease: No Hx Insulin Dependent Diabetes: No Hx Non-Insulin Dependent Diabetes: No Hx Thyroid Disease: No Hx Hypothyroidism: No Hx Hyperthyroidism: No - Hematic Hx Anemia: No Hx Sickle Cell Disease: No (trait only) - Other Systems Hx Alcohol Use: No Hx Substance Use: No Hx Cancer: No Hx Obesity: No
[2019-01-05] MEDS ORDERED: BICITRA PO ONE (17:00)
--- NOTE | 2019-01-05 17:15 | Progress Note ---
Assessment and Plan Close observation Anticipate delivery Subjective - Subjective Date of service: 01/05/19 (ROM Internals placed) Principal diagnosis: s/p eclamptic seizure @ 34.6 weeks Patient reports: movement normal, contractions, no new complaints Objective - Vital Signs Vital Signs: Vital Signs - 12hr 01/05/19 01/05/19 01/05/19 05:14 05:30 05:44 Pulse Rate 83 87 89 Blood Pressure 160/91 143/81 149/84 O2 Sat by Pulse Oximetry 01/05/19 01/05/19 01/05/19 05:59 06:14 06:29 Pulse Rate 95 H 95 H 97 H Blood Pressure 150/87 152/99 135/86 O2 Sat by Pulse Oximetry 01/05/19 01/05/19 01/05/19 06:44 07:00 07:14 Pulse Rate 96 H 102 H 101 H Blood Pressure 134/83 152/96 137/86 O2 Sat by Pulse Oximetry 01/05/19 01/05/19 01/05/19 07:29 07:45 07:49 Pulse Rate 96 H 102 H 96 H Blood Pressure 142/85 150/97 130/78 O2 Sat by Pulse Oximetry 01/05/19 01/05/19 01/05/19 07:59 08:14 08:29 Pulse Rate 93 H 93 H 95 H Blood Pressure 153/90 123/80 131/84 O2 Sat by Pulse Oximetry 01/05/19 01/05/19 01/05/19 08:44 08:57 09:00 Pulse Rate 97 H 98 H 89 Blood Pressure 128/79 144/88 O2 Sat by Pulse 97 Oximetry 01/05/19 01/05/19 01/05/19 09:02 09:08 09:13 Pulse Rate 93 H 87 85 Blood Pressure O2 Sat by Pulse 98 98 97 Oximetry 01/05/19 01/05/19 01/05/19 09:14 09:18 09:23 Pulse Rate 83 81 84 Blood Pressure 128/72 O2 Sat by Pulse 97 96 Oximetry 01/05/19 01/05/19 01/05/19 09:28 09:29 09:33 Pulse Rate 85 85 83 Blood Pressure 136/78 O2 Sat by Pulse 97 94 97 Oximetry 01/05/19 01/05/19 01/05/19 09:38 09:43 09:44 Pulse Rate 80 83 81 Blood Pressure 123/70 O2 Sat by Pulse 97 97 Oximetry 01/05/19 01/05/19 01/05/19 09:48 09:53 09:58 Pulse Rate 84 92 H 96 H Blood Pressure O2 Sat by Pulse 97 98 95 Oximetry 01/05/19 01/05/19 01/05/19 09:59 10:03 10:04 Pulse Rate 93 H 94 H Blood Pressure 132/78 O2 Sat by Pulse 86 90 Oximetry 01/05/19 01/05/19 01/05/19 10:08 10:10 10:13 Pulse Rate 86 89 89 Blood Pressure O2 Sat by Pulse 96 94 96 Oximetry 01/05/19 01/05/19 01/05/19 10:14 10:47 10:52 Pulse Rate 86 85 84 Blood Pressure 131/79 140/85 O2 Sat by Pulse 97 97 Oximetry 01/05/19 01/05/19 01/05/19 10:57 10:59 11:02 Pulse Rate 85 79 89 Blood Pressure 136/80 O2 Sat by Pulse 99 98 Oximetry 01/05/19 01/05/19 01/05/19 11:07 11:12 11:14 Pulse Rate 85 82 83 Blood Pressure 129/77 O2 Sat by Pulse 97 96 Oximetry 01/05/19 01/05/19 01/05/19 11:17 11:22 11:27 Pulse Rate 82 78 84 Blood Pressure O2 Sat by Pulse 96 96 95 Oximetry 01/05/19 01/05/19 01/05/19 11:30 11:32 11:37 Pulse Rate 79 83 84 Blood Pressure 130/74 O2 Sat by Pulse 95 95 Oximetry 01/05/19 01/05/19 01/05/19 11:42 11:44 11:47 Pulse Rate 85 78 87 Blood Pressure 134/77 O2 Sat by Pulse 95 95 Oximetry 01/05/19 01/05/19 01/05/19 11:52 12:00 12:14 Pulse Rate 88 112 H 112 H Blood Pressure 176/104 166/85 O2 Sat by Pulse 95 Oximetry 01/05/19 01/05/19 01/05/19 12:24 12:29 12:44 Pulse Rate 106 H 107 H 100 H Blood Pressure 145/86 140/86 140/90 O2 Sat by Pulse Oximetry 01/05/19 01/05/19 01/05/19 12:49 12:54 12:59 Pulse Rate 102 H 104 H 97 H Blood Pressure 144/90 O2 Sat by Pulse 99 97 97 Oximetry 01/05/19 01/05/19 01/05/19 13:04 13:09 13:14 Pulse Rate 99 H 93 H 91 H Blood Pressure O2 Sat by Pulse 97 97 96 Oximetry 01/05/19 01/05/19 01/05/19 13:15 13:19 13:24 Pulse Rate 89 99 H 101 H Blood Pressure 135/79 O2 Sat by Pulse 96 96 Oximetry 01/05/19 01/05/19 01/05/19 13:29 13:34 13:39 Pulse Rate 95 H 98 H 89 Blood Pressure 133/85 O2 Sat by Pulse 95 96 97 Oximetry 01/05/19 01/05/19 01/05/19 13:44 13:49 13:54 Pulse Rate 95 H 100 H 98 H Blood Pressure 140/88 O2 Sat by Pulse 98 97 97 Oximetry 01/05/19 01/05/19 01/05/19 13:59 14:04 14:09 Pulse Rate 100 H 102 H 95 H Blood Pressure 137/74 O2 Sat by Pulse 97 98 98 Oximetry 01/05/19 01/05/19 01/05/19 14:14 14:19 14:24 Pulse Rate 91 H 96 H 98 H Blood Pressure 137/78 O2 Sat by Pulse 98 98 97 Oximetry 01/05/19 01/05/19 01/05/19 14:29 14:34 14:39 Pulse Rate 94 H 89 99 H Blood Pressure 132/80 O2 Sat by Pulse 97 97 99 Oximetry 01/05/19 01/05/19 01/05/19 14:44 14:49 14:54 Pulse Rate 91 H 86 83 Blood Pressure 131/81 O2 Sat by Pulse 98 98 97 Oximetry 01/05/19 01/05/19 01/05/19 14:59 15:04 15:09 Pulse Rate 84 83 83 Blood Pressure 132/78 O2 Sat by Pulse 97 97 96 Oximetry 01/05/19 01/05/19 01/05/19 15:14 15:19 15:21 Pulse Rate 94 H 97 H 95 H Blood Pressure 129/79 O2 Sat by Pulse 97 97 94 Oximetry 02/27/19 02/27/19 02/27/19 15:25 15:30 15:35 Pulse Rate 91 H 83 84 Blood Pressure 136/88 O2 Sat by Pulse 98 99 97 Oximetry 01/05/19 01/05/19 01/05/19 15:40 15:44 15:45 Pulse Rate 86 85 92 H Blood Pressure 140/92 O2 Sat by Pulse 95 96 Oximetry 01/05/19 01/05/19 01/05/19 15:50 15:55 15:59 Pulse Rate 85 81 79 Blood Pressure 139/91 O2 Sat by Pulse 98 96 Oximetry 01/05/19 01/05/19 01/05/19 16:00 16:05 16:10 Pulse Rate 84 88 91 H Blood Pressure O2 Sat by Pulse 97 97 99 Oximetry 01/05/19 01/05/19 01/05/19 16:15 16:20 16:25 Pulse Rate 77 85 81 Blood Pressure 142/91 O2 Sat by Pulse 98 98 98 Oximetry 01/05/19 01/05/19 01/05/19 16:30 16:35 16:40 Pulse Rate 79 78 81 Blood Pressure 142/90 O2 Sat by Pulse 97 97 97 Oximetry 01/05/19 01/05/19 01/05/19 16:45 16:50 16:55 Pulse Rate 86 85 97 H Blood Pressure 135/85 O2 Sat by Pulse 98 100 100 Oximetry 01/05/19 01/05/19 01/05/19 16:59 17:00 17:05 Pulse Rate 85 84 93 H Blood Pressure 154/104 O2 Sat by Pulse 100 100 Oximetry 01/05/19 17:10 Pulse Rate 89 Blood Pressure O2 Sat by Pulse 100 Oximetry - Exam Breasts: deferred Cardiovascular: Regular rate Lungs: Normal air movement Abdomen: Present: normal appearance, soft. Absent: distention, tenderness Uterus: Present: normal FHR: auscultation normal, category 2 Uterine Contraction Monitor Mode: Internal Cervical Dilatation: 8 (ROM) Cervical Effacement Percentage: 100 (ISE/IUPC placed) station: 0 Uterine Contraction Pattern: Regular Uterine Tone Measurement Phase: Resting Uterine Contraction Intensity: Moderate Extremities: normal Deep Tendon Reflex Grade: Normal but brisk +3 - Labs Labs: Abnormal Labs 01/04/19 01/04/19 01/04/19 22:45 23:06 23:06 WBC RBC 3.55 L PT INR Sodium 136 L Carbon Dioxide 15 L Magnesium Alkaline Phosphatase 150 H Lactate Dehydrogenase Albumin 3.3 L 01/04/19 01/04/19 01/05/19 23:06 23:06 06:14 WBC RBC PT 11.9 L INR 0.83 L Sodium Carbon Dioxide Magnesium 5.40 H Alkaline Phosphatase Lactate Dehydrogenase 249 H Albumin 01/05/19 01/05/19 10:30 13:22 WBC 11.6 H RBC 3.64 L PT INR Sodium Carbon Dioxide Magnesium 6.50 H Alkaline Phosphatase Lactate Dehydrogenase Albumin Laboratory Results - last 24 hr 01/04/19 01/04/19 01/04/19 22:45 22:45 23:06 WBC 9.6 7.9 RBC 3.90 3.55 L Hgb 12.5 11.3 Hct 36.9 33.0 MCV 95 93 MCH 32 32 MCHC 34 34 RDW 14.4 14.1 Plt Count 161 150 Lymph % (Auto) 28.9 Andrew % (Auto) 6.3 Eos % (Auto) 0.8 Baso % (Auto) 0.9 Lymph # 2.3 Andrew # 0.5 Eos # 0.1 Baso # 0.1 Seg Neutrophils % 63.1 Seg Neutrophils # 5.0 PT INR APTT Sodium 136 L Potassium 4.1 Chloride 101.3 Carbon Dioxide 15 L Anion Gap 24 BUN 11 Creatinine 1.0 Estimated GFR > 60 BUN/Creatinine Ratio 11 Glucose 82 POC Glucose Calcium 9.4 Magnesium Total Bilirubin Direct Bilirubin AST ALT Alkaline Phosphatase Lactate Dehydrogenase Total Protein Albumin Albumin/Globulin Ratio Urine Color Urine Turbidity Urine pH Ur Specific [place] Urine Protein Urine Glucose (UA) Urine Ketones Urine Blood Urine Nitrite Urine Bilirubin Urine Urobilinogen Ur Leukocyte Esterase Urine WBC (Auto) Urine RBC (Auto) U Epithel Cells (Auto) Urine Mucus Urine Opiates Screen Urine Methadone Screen Ur Barbiturates Screen Ur Phencyclidine Scrn Ur Amphetamines Screen U Benzodiazepines Scrn Urine Cocaine Screen U Marijuana (THC) Screen Drugs of Abuse Note RPR Blood Type Antibody Screen Antibody Identification 01/04/19 01/04/19 01/04/19 23:06 23:06 23:06 WBC RBC Hgb Hct MCV MCH MCHC RDW Plt Count Lymph % (Auto) Andrew % (Auto) Eos % (Auto) Baso % (Auto) Lymph # Andrew # Eos # Baso # Seg Neutrophils % Seg Neutrophils # PT 11.9 L INR 0.83 L APTT 25.6 Sodium Potassium Chloride Carbon Dioxide Anion Gap BUN Creatinine Estimated GFR BUN/Creatinine Ratio Glucose POC Glucose Calcium Magnesium Total Bilirubin 0.40 Direct Bilirubin < 0.2 AST 29 ALT 30 Alkaline Phosphatase 150 H Lactate Dehydrogenase 249 H Total Protein 6.6 Albumin 3.3 L Albumin/Globulin Ratio 1.0 Urine Color Urine Turbidity Urine pH Ur Specific [place] Urine Protein Urine Glucose (UA) Urine Ketones Urine Blood Urine Nitrite Urine Bilirubin Urine Urobilinogen Ur Leukocyte Esterase Urine WBC (Auto) Urine RBC (Auto) U Epithel Cells (Auto) Urine Mucus Urine Opiates Screen Urine Methadone Screen Ur Barbiturates Screen Ur Phencyclidine Scrn Ur Amphetamines Screen U Benzodiazepines Scrn Urine Cocaine Screen U Marijuana (THC) Screen Drugs of Abuse Note RPR Blood Type Antibody Screen Antibody Identification 01/04/19 01/04/19 01/05/19 23:11 23:40 00:35 WBC RBC Hgb Hct MCV MCH MCHC RDW Plt Count Lymph % (Auto) Andrew % (Auto) Eos % (Auto) Baso % (Auto) Lymph # Andrew # Eos # Baso # Seg Neutrophils % Seg Neutrophils # PT INR APTT Sodium Potassium Chloride Carbon Dioxide Anion Gap BUN Creatinine Estimated GFR BUN/Creatinine Ratio Glucose POC Glucose 83 Calcium Magnesium Total Bilirubin Direct Bilirubin AST ALT Alkaline Phosphatase Lactate Dehydrogenase Total Protein Albumin Albumin/Globulin Ratio Urine Color Urine Turbidity Urine pH Ur Specific [place] Urine Protein Urine Glucose (UA) Urine Ketones Urine Blood Urine Nitrite Urine Bilirubin Urine Urobilinogen Ur Leukocyte Esterase Urine WBC (Auto) Urine RBC (Auto) U Epithel Cells (Auto) Urine Mucus Urine Opiates Screen Urine Methadone Screen Ur Barbiturates Screen Ur Phencyclidine Scrn Ur Amphetamines Screen U Benzodiazepines Scrn Urine Cocaine Screen U Marijuana (THC) Screen Drugs of Abuse Note RPR Nonreactive Blood Type O NEGATIVE Antibody Screen Positive Antibody Identification Anti-D (Actively Aquired) 01/05/19 01/05/19 01/05/19 01:00 01:09 06:14 WBC RBC Hgb Hct MCV MCH MCHC RDW Plt Count Lymph % (Auto) Andrew % (Auto) Eos % (Auto) Baso % (Auto) Lymph # Andrew # Eos # Baso # Seg Neutrophils % Seg Neutrophils # PT INR APTT Sodium Potassium Chloride Carbon Dioxide Anion Gap BUN Creatinine Estimated GFR BUN/Creatinine Ratio Glucose POC Glucose Calcium Magnesium 5.40 H Total Bilirubin Direct Bilirubin AST ALT Alkaline Phosphatase Lactate Dehydrogenase Total Protein Albumin Albumin/Globulin Ratio Urine Color Yellow Urine Turbidity Clear Urine pH 5.0 Ur Specific [place] 1.012 Urine Protein 30 mg/dl Urine Glucose (UA) Neg Urine Ketones Neg Urine Blood Neg Urine Nitrite Neg Urine Bilirubin Neg Urine Urobilinogen 2.0 Ur Leukocyte Esterase Neg Urine WBC (Auto) 1.0 Urine RBC (Auto) 1.0 U Epithel Cells (Auto) < 1.0 Urine Mucus Few Urine Opiates Screen Presumptive negative Urine Methadone Screen Presumptive negative Ur Barbiturates Screen Presumptive negative Ur Phencyclidine Scrn Presumptive negative Ur Amphetamines Screen Presumptive negative U Benzodiazepines Scrn Presumptive negative Urine Cocaine Screen Presumptive negative U Marijuana (THC) Screen Presumptive negative Drugs of Abuse Note Disclamer RPR Blood Type Antibody Screen Antibody Identification 01/05/19 01/05/19 10:30 13:22 WBC 11.6 H RBC 3.64 L Hgb 11.4 Hct 33.7 MCV 93 MCH 31 MCHC 34 RDW 14.5 Plt Count 155 Lymph % (Auto) Andrew % (Auto) Eos % (Auto) Baso % (Auto) Lymph # Andrew # Eos # Baso # Seg Neutrophils % Seg Neutrophils # PT INR APTT Sodium Potassium Chloride Carbon Dioxide Anion Gap BUN Creatinine Estimated GFR BUN/Creatinine Ratio Glucose POC Glucose Calcium Magnesium 6.50 H Total Bilirubin Direct Bilirubin AST ALT Alkaline Phosphatase Lactate Dehydrogenase Total Protein Albumin Albumin/Globulin Ratio Urine Color Urine Turbidity Urine pH Ur Specific [place] Urine Protein Urine Glucose (UA) Urine Ketones Urine Blood Urine Nitrite Urine Bilirubin Urine Urobilinogen Ur Leukocyte Esterase Urine WBC (Auto) Urine RBC (Auto) U Epithel Cells (Auto) Urine Mucus Urine Opiates Screen Urine Methadone Screen Ur Barbiturates Screen Ur Phencyclidine Scrn Ur Amphetamines Screen U Benzodiazepines Scrn Urine Cocaine Screen U Marijuana (THC) Screen Drugs of Abuse Note RPR Blood Type Antibody Screen Antibody Identification
[2019-01-05] MEDS ORDERED: CYTOTEC ONE (17:44)
--- NOTE | 2019-01-05 18:04 | Procedure Note ---
OB Delivery Note - Delivery Date of Delivery: 01/05/19 [employer] Builder: ESTEBAN THORPE Estimated blood loss: 500cc - Vaginal Delivery presentation: vertex Delivery position: OA Intrapartum events: labor-<37 weeks, PROM->1hr before delivery, abruption (suspected @ time of delivery), eclampsia, seizure activity Delivery induction: none Delivery augmentation: pitocin Delivery monitor: internal FHT, internal uterine Route of delivery: Delivery placenta: spontaneous Delivery cord: 3 umbilical vessels Episiotomy: none Delivery laceration: none Anesthesia: epidural Delivery comments: NICU present for delivery. live born male over intact perineum. Large amt dark blood noted with delivery and immediate delivery of placenta. Baby passed to NICU Team, crying. Placenta had delivered complete and intact, sent to pathology. Uterine atony despite pitocin and removal of several moderate size clots. Cytotec 800mcg SC pl aced. Bleeding again Resoled with massage and removal of small clots. 7/8, EBL 500, Wgt 4-2. Baby to NICU for observation. FF @ umb Lochia moderate Pt remains LDR stable. Alvarado replaced Will hold on L&D for 24hr MGSO4. - A at 1 minute: 7 at 5 minutes: 8 Gender: Male (wgt 4-2)
[2019-01-05] MEDS ORDERED: PHENERGAN PO PRN (18:11)
[2019-01-05] MEDS ORDERED: DULCOLAX PR PRN (18:11)
[2019-01-05] MEDS ORDERED: LANSINOH TP PRN (18:11)
[2019-01-05] MEDS ORDERED: ZOFRAN IV PRN (18:11)
[2019-01-05] MEDS ORDERED: TYLENOL PO PRN (18:11)
[2019-01-05] MEDS ORDERED: TUCKS PAD TP PRN (18:11)
[2019-01-05] MEDS ORDERED: BENADRYL PO PRN (18:11)
[2019-01-05] MEDS ORDERED: MILK OF MAGNESIA PO PRN (18:11)
[2019-01-05] MEDS ORDERED: SODIUM CHLORIDE FLUSH SYRINGE 10 ML IV SCH (19:00)
[2019-01-05] MEDS ORDERED: CYTOTEC PR ONE (19:00)
--- NOTE | 2019-01-05 20:21 | Post Anesthesia Evaluation ---
- Post Anesthesia Evaluation Patient Participated: Yes Airway Patent: Yes Stable Respiratory Function: Yes Nausea/Vomiting: No Temp > 96.8F: Yes Pain Manageable: Yes Adequeate Hydration: Yes Anesthesia Complications: No Block Receding Appropriately: Yes Patient on Ventilator: No
[2019-01-05] MEDS: IBUPROFEN PO SCH (20:53)
[2019-01-05] MEDS ORDERED: APRESOLINE IV ONE (21:00)
--- NOTE | 2019-01-05 23:03 | Progress Note ---
Assessment and Plan pt had elevated BPs after several hrs PP. Noted that MGSO4 was not infusing. This was corrected. Apresoline was administered. Pt started on Procardia XL QD BP now 140-130/70-60 aware Subjective - Subjective Date of service: 01/05/19 (pt w/o voiced c/o) Principal diagnosis: s/p eclamptic seizure ; s/p ; PreE MGSO4 X 24hr Patient reports: appetite normal, voiding normally (clear yellow urine to BSB), pain well controlled : in NICU Objective - Vital Signs Latest vital signs: Vital Signs Temp Pulse Resp BP BP Pulse Ox 01/05/19 22:44 104 H 137/72 01/05/19 22:29 113 H 143/80 01/05/19 22:14 115 H 147/81 01/05/19 21:59 117 H 152/81 01/05/19 21:44 115 H 159/98 01/05/19 21:29 123 H 164/96 01/05/19 21:21 103 H 156/101 01/05/19 21:14 102 H 167/112 01/05/19 20:59 102 H 171/109 01/05/19 20:44 93 H 165/104 01/05/19 20:43 98.3 F 93 H 18 165/104 01/05/19 20:29 94 H 171/113 01/05/19 20:14 90 149/97 01/05/19 19:59 88 150/96 01/05/19 19:44 85 147/94 01/05/19 19:29 82 147/92 01/05/19 19:14 82 157/101 01/05/19 18:59 78 162/105 01/05/19 18:44 82 162/101 01/05/19 18:29 100 H 149/96 01/05/19 18:15 83 149/95 01/05/19 18:14 85 154/101 01/05/19 18:00 98.6 F 01/05/19 17:59 85 147/99 01/05/19 17:44 86 140/92 01/05/19 17:30 99 H 100 01/05/19 17:25 97 H 99 01/05/19 17:20 97 H 100 01/05/19 17:15 90 135/98 100 01/05/19 17:10 89 100 01/05/19 17:05 93 H 100 01/05/19 17:00 84 100 01/05/19 16:59 85 154/104 01/05/19 16:55 97 H 100 01/05/19 16:50 85 100 01/05/19 16:45 86 135/85 98 01/05/19 16:40 81 97 01/05/19 16:35 78 97 01/05/19 16:30 79 142/90 97 01/05/19 16:25 81 98 01/05/19 16:20 85 98 01/05/19 16:15 77 142/91 98 01/05/19 16:10 91 H 99 01/05/19 16:05 88 97 01/05/19 16:00 98.6 F 84 97 01/05/19 15:59 79 139/91 01/05/19 15:55 81 96 01/05/19 15:50 85 98 01/05/19 15:45 92 H 96 01/05/19 15:44 85 140/92 01/05/19 15:40 86 95 01/05/19 15:35 84 97 01/05/19 15:30 83 136/88 99 01/05/19 15:25 91 H 98 01/05/19 15:21 95 H 94 01/05/19 15:19 97 H 97 01/05/19 15:14 94 H 129/79 97 01/05/19 15:09 83 96 01/05/19 15:04 83 97 01/05/19 14:59 84 132/78 97 01/05/19 14:54 83 97 01/05/19 14:49 86 98 01/05/19 14:44 91 H 131/81 98 01/05/19 14:39 99 H 99 01/05/19 14:34 89 97 01/05/19 14:29 94 H 132/80 97 01/05/19 14:24 98 H 97 01/05/19 14:19 96 H 98 01/05/19 14:14 91 H 137/78 98 01/05/19 14:09 95 H 98 01/05/19 14:04 102 H 98 01/05/19 13:59 100 H 137/74 97 01/05/19 13:54 98 H 97 01/05/19 13:49 100 H 97 01/05/19 13:44 95 H 140/88 98 01/05/19 13:39 89 97 01/05/19 13:34 98 H 96 01/05/19 13:29 95 H 133/85 95 01/05/19 13:24 101 H 96 01/05/19 13:19 99 H 96 01/05/19 13:15 89 135/79 01/05/19 13:14 91 H 96 01/05/19 13:09 93 H 97 01/05/19 13:04 99 H 97 01/05/19 13:00 98.2 F 01/05/19 12:59 97 H 144/90 97 01/05/19 12:54 104 H 97 01/05/19 12:49 102 H 99 01/05/19 12:44 100 H 140/90 01/05/19 12:29 107 H 140/86 01/05/19 12:24 106 H 145/86 01/05/19 12:14 112 H 166/85 01/05/19 12:00 112 H 176/104 01/05/19 11:52 88 95 01/05/19 11:47 87 95 01/05/19 11:44 78 134/77 01/05/19 11:42 85 95 01/05/19 11:37 84 95 01/05/19 11:32 83 95 01/05/19 11:30 79 130/74 01/05/19 11:27 84 95 01/05/19 11:22 78 96 01/05/19 11:17 82 96 01/05/19 11:14 83 129/77 01/05/19 11:12 82 96 01/05/19 11:07 85 97 01/05/19 11:02 89 98 01/05/19 10:59 79 136/80 01/05/19 10:57 85 99 01/05/19 10:52 84 97 01/05/19 10:47 85 140/85 97 01/05/19 10:14 86 131/79 01/05/19 10:13 89 96 01/05/19 10:10 89 94 01/05/19 10:08 86 96 01/05/19 10:04 94 H 90 01/05/19 10:03 86 01/05/19 10:00 97.4 F L 01/05/19 09:59 93 H 132/78 01/05/19 09:58 96 H 95 01/05/19 09:53 92 H 98 01/05/19 09:48 84 97 01/05/19 09:44 81 123/70 01/05/19 09:43 83 97 01/05/19 09:38 80 97 01/05/19 09:33 83 97 01/05/19 09:29 85 136/78 94 01/05/19 09:28 85 97 01/05/19 09:23 84 96 01/05/19 09:18 81 97 01/05/19 09:14 83 128/72 01/05/19 09:13 85 97 01/05/19 09:08 87 98 01/05/19 09:02 93 H 98 01/05/19 09:00 89 144/88 01/05/19 08:57 98 H 97 01/05/19 08:44 97 H 128/79 01/05/19 08:29 95 H 131/84 01/05/19 08:14 93 H 123/80 01/05/19 08:00 97.7 F 01/05/19 07:59 93 H 153/90 01/05/19 07:49 96 H 130/78 01/05/19 07:45 102 H 150/97 01/05/19 07:29 96 H 142/85 01/05/19 07:14 101 H 137/86 01/05/19 07:00 102 H 152/96 01/05/19 06:44 96 H 134/83 01/05/19 06:29 97 H 135/86 01/05/19 06:14 95 H 152/99 01/05/19 05:59 95 H 150/87 01/05/19 05:44 89 149/84 01/05/19 05:30 87 143/81 01/05/19 05:14 83 160/91 01/05/19 04:59 85 125/68 01/05/19 04:44 78 133/73 01/05/19 04:29 76 137/75 01/05/19 04:15 80 176/102 01/05/19 03:59 81 156/96 01/05/19 03:44 95 H 152/95 01/05/19 03:30 88 146/94 01/05/19 03:29 89 159/96 01/05/19 03:14 108 H 175/99 01/05/19 02:59 95 H 132/83 01/05/19 02:45 97 H 132/86 01/05/19 02:02 88 140/88 01/05/19 01:26 81 156/100 01/05/19 00:50 81 20 156/101 99 01/05/19 00:36 19 01/05/19 00:30 93 H 17 165/99 96 01/04/19 23:50 97 H 19 139/83 99 01/04/19 23:19 80 137/97 Intake and Output 01/05/19 01/05/19 01/05/19 06:59 14:59 22:59 Intake Total 1000 Output Total 900 Balance 1000 -900 Intake: IV 1000 Lactated Ringers 1,000 ml 1000 @ 125 mls/hr IV DIRECT TENZIN Rx#:[id number] Output: Urine 900 Indwelling Catheter 900 Other: Total, Output Amount 900 Estimated Blood Loss 500 - Exam Breasts: Present: normal Cardiovascular: Present: Regular rate Lungs: Present: Normal air movement Abdomen: Present: normal appearance, soft, normal bowel sounds Vulva: both: normal Uterus: Present: normal, firm, fundal height below umbilicus Extremities: Present: edema Deep Tendon Reflex Grade: Normal +2 Incision: Present: normal - Labs Labs: Abnormal lab results 01/04/19 01/04/19 01/04/19 Range/Units 22:45 23:06 23:06 WBC (4.5-11.0) K/mm3 RBC 3.55 L (3.65-5.03) M/mm3 PT (12.2-14.9) Sec. INR (0.87-1.13) Sodium 136 L (137-145) mmol/L Carbon Dioxide 15 L (22-30) mmol/L Magnesium (1.7-2.3) mg/dL Alkaline Phosphatase 150 H (35-129) units/L Lactate Dehydrogenase (91-180) units/L Albumin 3.3 L (3.9-5) g/dL 01/04/19 01/04/19 01/05/19 Range/Units 23:06 23:06 06:14 WBC (4.5-11.0) K/mm3 RBC (3.65-5.03) M/mm3 PT 11.9 L (12.2-14.9) Sec. INR 0.83 L (0.87-1.13) Sodium (137-145) mmol/L Carbon Dioxide (22-30) mmol/L Magnesium 5.40 H (1.7-2.3) mg/dL Alkaline Phosphatase (35-129) units/L Lactate Dehydrogenase 249 H (91-180) units/L Albumin (3.9-5) g/dL 01/05/19 01/05/19 01/05/19 Range/Units 10:30 13:22 20:03 WBC 11.6 H (4.5-11.0) K/mm3 RBC 3.64 L (3.65-5.03) M/mm3 PT (12.2-14.9) Sec. INR (0.87-1.13) Sodium (137-145) mmol/L Carbon Dioxide (22-30) mmol/L Magnesium 6.50 H 7.10 H (1.7-2.3) mg/dL Alkaline Phosphatase (35-129) units/L Lactate Dehydrogenase (91-180) units/L Albumin (3.9-5) g/dL
[2019-01-06] MEDS ORDERED: TYLENOL PO PRN (00:46)
[2019-01-06] MEDS ORDERED: TYLENOL ONE (01:33)
[2019-01-06] MEDS ORDERED: TYLENOL PO ONE (01:37)
[2019-01-06] MEDS ORDERED: MAGNESIUM SULFATE 40GM/1000ML 40 GM/1,000 ML BAG IV SCH (02:00)
[2019-01-06] MEDS: MAGNESIUM SULFATE 40GM/1000ML 40 GM/1,000 ML BAG IV SCH (02:37)
[2019-01-06] MEDS: IBUPROFEN PO SCH ×3 (03:00→17:46)
[2019-01-06] MEDS ORDERED: BOOSTRIX IM ONE (06:00)
[2019-01-06 06:23] LABS: Hematocrit 27.2 % (30.3-42.9); Hemoglobin 9.1 gm/dl (10.1-14.3)
--- NOTE | 2019-01-06 07:36 | Progress Note ---
Assessment and Plan PPD 1 Patient resting in bed, reports feeling well, no complaints. Patient denies any headache, RUQ pain. PIH assessment WNL. VSSAF. Magnesium currently infusing at 1gram/hr, most recent mag level 5 at 0549. UOP adequate. Patient voicing desire to see infant in NICU, will speak with charge nurse to attempt to coordinate visit if patient remains stable. RN notified of patient desire to begin pumping breast milk for infant. Vaginal bleeding is scant. Fundus firm, ML, U/1. Patient reports pain is well controlled. Will continue magnesium x24hrs post delivery. Continue current POC. Subjective - Subjective Date of service: 01/06/19 Principal diagnosis: s/p eclamptic seizure ; s/p ; PreE MGSO4 X 24hr Patient reports: appetite normal, pain well controlled Glady: in NICU Objective - Vital Signs Latest vital signs: Vital Signs Temp Pulse Resp BP BP Pulse Ox 01/06/19 07:14 93 H 139/84 01/06/19 06:44 85 132/72 01/06/19 06:14 100 H 135/79 01/06/19 05:44 95 H 129/74 01/06/19 05:14 88 123/64 01/06/19 04:45 94 H 127/68 01/06/19 04:14 92 H 117/60 01/06/19 04:00 18 01/06/19 03:44 90 127/70 01/06/19 03:14 89 137/75 01/06/19 03:00 18 01/06/19 02:55 96 H 18 130/70 01/06/19 02:53 96 H 130/70 01/06/19 02:44 93 H 138/74 01/06/19 02:14 93 H 133/76 01/06/19 01:58 18 01/06/19 01:44 103 H 133/70 01/06/19 01:14 102 H 147/79 01/06/19 00:59 106 H 134/71 01/06/19 00:44 114 H 132/81 01/06/19 00:29 108 H 130/71 01/06/19 00:14 105 H 122/65 01/05/19 23:59 102 H 115/59 01/05/19 23:44 106 H 111/53 01/05/19 23:29 107 H 109/56 01/05/19 23:14 105 H 115/56 01/05/19 22:59 104 H 130/68 01/05/19 22:44 104 H 137/72 01/05/19 22:29 113 H 143/80 01/05/19 22:14 115 H 147/81 01/05/19 21:59 117 H 152/81 01/05/19 21:53 18 01/05/19 21:44 115 H 159/98 01/05/19 21:29 123 H 164/96 01/05/19 21:21 103 H 156/101 01/05/19 21:15 171/109 01/05/19 21:14 102 H 167/112 01/05/19 20:59 102 H 171/109 01/05/19 20:53 18 01/05/19 20:44 93 H 165/104 01/05/19 20:43 98.3 F 93 H 18 165/104 01/05/19 20:29 94 H 171/113 01/05/19 20:14 90 149/97 01/05/19 19:59 88 150/96 01/05/19 19:44 85 147/94 01/05/19 19:29 82 147/92 01/05/19 19:14 82 157/101 01/05/19 18:59 78 162/105 01/05/19 18:44 82 162/101 01/05/19 18:29 100 H 149/96 01/05/19 18:15 83 149/95 01/05/19 18:14 85 154/101 01/05/19 18:00 98.6 F 01/05/19 17:59 85 147/99 01/05/19 17:44 86 140/92 01/05/19 17:30 99 H 100 01/05/19 17:25 97 H 99 01/05/19 17:20 97 H 100 01/05/19 17:15 90 135/98 100 01/05/19 17:10 89 100 01/05/19 17:05 93 H 100 01/05/19 17:00 84 100 01/05/19 16:59 85 154/104 01/05/19 16:55 97 H 100 01/05/19 16:50 85 100 01/05/19 16:45 86 135/85 98 01/05/19 16:40 81 97 01/05/19 16:35 78 97 01/05/19 16:30 79 142/90 97 01/05/19 16:25 81 98 01/05/19 16:20 85 98 01/05/19 16:15 77 142/91 98 01/05/19 16:10 91 H 99 01/05/19 16:05 88 97 01/05/19 16:00 98.6 F 84 97 01/05/19 15:59 79 139/91 01/05/19 15:55 81 96 01/05/19 15:50 85 98 01/05/19 15:45 92 H 96 01/05/19 15:44 85 140/92 01/05/19 15:40 86 95 01/05/19 15:35 84 97 01/05/19 15:30 83 136/88 99 01/05/19 15:25 91 H 98 01/05/19 15:21 95 H 94 01/05/19 15:19 97 H 97 01/05/19 15:14 94 H 129/79 97 01/05/19 15:09 83 96 01/05/19 15:04 83 97 01/05/19 14:59 84 132/78 97 01/05/19 14:54 83 97 01/05/19 14:49 86 98 01/05/19 14:44 91 H 131/81 98 01/05/19 14:39 99 H 99 01/05/19 14:34 89 97 01/05/19 14:29 94 H 132/80 97 01/05/19 14:24 98 H 97 01/05/19 14:19 96 H 98 01/05/19 14:14 91 H 137/78 98 01/05/19 14:09 95 H 98 01/05/19 14:04 102 H 98 01/05/19 13:59 100 H 137/74 97 01/05/19 13:54 98 H 97 01/05/19 13:49 100 H 97 01/05/19 13:44 95 H 140/88 98 01/05/19 13:39 89 97 01/05/19 13:34 98 H 96 01/05/19 13:29 95 H 133/85 95 01/05/19 13:24 101 H 96 01/05/19 13:19 99 H 96 01/05/19 13:15 89 135/79 01/05/19 13:14 91 H 96 01/05/19 13:09 93 H 97 01/05/19 13:04 99 H 97 01/05/19 13:00 98.2 F 01/05/19 12:59 97 H 144/90 97 01/05/19 12:54 104 H 97 01/05/19 12:49 102 H 99 01/05/19 12:44 100 H 140/90 01/05/19 12:29 107 H 140/86 01/05/19 12:24 106 H 145/86 01/05/19 12:14 112 H 166/85 01/05/19 12:00 112 H 176/104 01/05/19 11:52 88 95 01/05/19 11:47 87 95 01/05/19 11:44 78 134/77 01/05/19 11:42 85 95 01/05/19 11:37 84 95 01/05/19 11:32 83 95 01/05/19 11:30 79 130/74 01/05/19 11:27 84 95 01/05/19 11:22 78 96 01/05/19 11:17 82 96 01/05/19 11:14 83 129/77 01/05/19 11:12 82 96 01/05/19 11:07 85 97 01/05/19 11:02 89 98 01/05/19 10:59 79 136/80 01/05/19 10:57 85 99 01/05/19 10:52 84 97 01/05/19 10:47 85 140/85 97 01/05/19 10:14 86 131/79 01/05/19 10:13 89 96 01/05/19 10:10 89 94 01/05/19 10:08 86 96 01/05/19 10:04 94 H 90 01/05/19 10:03 86 01/05/19 10:00 97.4 F L 01/05/19 09:59 93 H 132/78 01/05/19 09:58 96 H 95 01/05/19 09:53 92 H 98 01/05/19 09:48 84 97 01/05/19 09:44 81 123/70 01/05/19 09:43 83 97 01/05/19 09:38 80 97 01/05/19 09:33 83 97 01/05/19 09:29 85 136/78 94 01/05/19 09:28 85 97 01/05/19 09:23 84 96 01/05/19 09:18 81 97 01/05/19 09:14 83 128/72 01/05/19 09:13 85 97 01/05/19 09:08 87 98 01/05/19 09:02 93 H 98 01/05/19 09:00 89 144/88 01/05/19 08:57 98 H 97 01/05/19 08:44 97 H 128/79 01/05/19 08:29 95 H 131/84 01/05/19 08:14 93 H 123/80 01/05/19 08:00 97.7 F 01/05/19 07:59 93 H 153/90 01/05/19 07:49 96 H 130/78 01/05/19 07:45 102 H 150/97 Intake and Output 01/05/19 01/05/19 01/06/19 15:59 23:59 07:59 Intake Total 1000 935 Output Total 900 1000 Balance 1000 35 -1000 Intake: IV 1000 935 Lactated Ringers 1,000 ml 1000 @ 125 mls/hr IV DIRECT TENZIN Rx#:[id number] MAGNESIUM SULFATE 40GM/ 935 1000ML 40 gm In 1,000 ml @ 2 GM/HR 50 mls/hr IV DIRECT TENZIN Rx#:[id number] Output: Urine 900 1000 Indwelling Catheter 900 1000 Other: Total, Output Amount 900 150 Estimated Blood Loss 500 - Exam Breasts: Present: normal Cardiovascular: Present: Regular rate, Normal S1, Normal S2 Lungs: Present: Clear to auscultation Abdomen: Present: normal appearance, soft, normal bowel sounds Uterus: Present: normal, firm Extremities: Present: normal Deep Tendon Reflex Grade: Normal +2 - Labs Labs: Abnormal lab results 01/05/19 01/05/19 01/05/19 Range/Units 10:30 13:22 20:03 WBC 11.6 H (4.5-11.0) K/mm3 RBC 3.64 L (3.65-5.03) M/mm3 Hgb (10.1-14.3) gm/dl Hct (30.3-42.9) % Magnesium 6.50 H 7.10 H (1.7-2.3) mg/dL 01/06/19 01/06/19 01/06/19 Range/Units 00:33 05:49 05:49 WBC (4.5-11.0) K/mm3 RBC (3.65-5.03) M/mm3 Hgb 9.1 L (10.1-14.3) gm/dl Hct 27.2 L D (30.3-42.9) % Magnesium 6.60 H 5.00 H (1.7-2.3) mg/dL
[2019-01-06] MEDS: LACTATED RINGERS 1,000 ML IV SCH (08:30)
[2019-01-06] MEDS: COLACE PO SCH (10:06)
[2019-01-06] MEDS: PRENATAL VITAMIN PO SCH (10:06)
[2019-01-06] MEDS: PROCARDIA XL PO SCH (10:06)
[2019-01-06] MEDS ORDERED: M-M-R II VACCINE SUB-Q ONE (18:45)
[2019-01-06] MEDS ORDERED: FEOSOL PO SCH (22:00)
[2019-01-07] MEDS: COLACE PO SCH ×3 (00:04→10:15)
[2019-01-07] MEDS: IBUPROFEN PO SCH ×2 (00:04→05:16)
--- NOTE | 2019-01-07 08:15 | Discharge Summary ---
Providers - Providers Date of Admission: 01/05/19 00:14 Date of discharge: 01/07/19 Attending physician: SHANNA MAC 01/04/19 23:16 Consult to Physician [CONS] Stat Comment: Dr. Treadwell spoke with Dr. Mac @ [phone] Consulting Provider: SHANNA MAC Physician Instructions: Reason For Exam: eclampsia 01/05/19 00:34 Consult to Physician [CONS] Routine Comment: Consulting Provider: ANA LAURA MCHUGH Physician Instructions: Reason For Exam: 33 weeks seizure; elevated blood pressure 01/07/19 07:20 Consult to Case Management [CONS] Routine Services Needed at Discharge: Customer Care Specialist [facility] Reason for admission: eclampsia Condition: Good Pertinent studies: postdelivery H&H .2 Procedures: Hospital course: labor, delivery and course complicated by eclampsia Disposition: DC-01 TO HOME OR SELFCARE - Discharge Diagnoses (1) Eclampsia affecting in third trimester Status: Acute (2) Normal spontaneous vaginal delivery Status: Acute Core Measure Documentation - Palliative Care Palliative Care/ Comfort Measures: Not Applicable - Core Measures Any of the following diagnoses?: none Exam - Constitutional Vitals: Temp Pulse Resp BP Pulse Ox 98.6 F 79 18 128/73 99 01/07/19 03:45 01/07/19 03:45 01/07/19 03:45 01/07/19 03:45 01/06/19 17:50 General appearance: Present: no acute distress, well-nourished - EENT Eyes: Present: PERRL ENT: hearing intact, clear oral mucosa - Neck Neck: Present: supple, normal ROM - Respiratory Respiratory effort: normal Respiratory: bilateral: CTA - Cardiovascular Heart Sounds: Present: S1 & S2. Absent: rub, click - Extremities Extremities: pulses symmetrical, No edema Peripheral Pulses: within normal limits - Abdominal General gastrointestinal: Present: soft, non-tender, non-distended, normal bowel sounds Female genitourinary: Present: normal - Integumentary Integumentary: Present: clear, warm, dry - Musculoskeletal Musculoskeletal: gait normal, strength equal bilaterally - Psychiatric Psychiatric: appropriate mood/affect, intact judgment & insight - Neurologic Neurologic: CNII-XII intact, moves all extremities - Additional findings Additional findings: lochia scant, fundus firm, pumping breast, denies RUGGIERO, visual changes or epigastric pain Plan Activity: no restrictions Diet: regular [facility]Primary Care Provider[facility] - 3-5 Days GABRIEL HIGH MD [Staff Physician] - 7 Days (Please follow up with your OBGYN, or call [phone] to schedule a blood pressure check in 1 week. Check blood pressure twice a day. Call for any questions, concerns, complaints of headache, visual changes or upper abd pain.) Prescriptions: Lidocain2.5%/Prilocai2.5% [Emla] 5 gm TP ONCE PRN #1 tube PRN Reason: Pain NIFEdipine XL [Procardia Xl] 30 mg PO QDAY #2 tablet
[2019-01-07] MEDS: PRENATAL VITAMIN PO SCH (10:14)
[2019-01-07] MEDS: PROCARDIA XL PO SCH (10:15)
[2019-01-07 10:45] VITALS: BP 135/72
== END 2019-01-07 12:10 | disposition home or self-care (01) | DRG 774 ==
LOC: ED 22:31 → LD 01-05 00:14 → OB 01-06 18:21
PROVIDERS: ADMIT Obstetrics & Gynecology; ATTEND Obstetrics & Gynecology
PROC: 10E0XZZ Delivery of Products of Conception, External Approach (ICD-10-PCS; principal; 2019-01-05)
PROC: 3E0R3BZ Introduction of Anesthetic Agent into Spinal Canal, Percutaneous Approach (ICD-10-PCS; 2019-01-05)
PROC: 00HU33Z Insertion of Infusion Device into Spinal Canal, Percutaneous Approach (ICD-10-PCS; 2019-01-05)
PROC: 3E0234Z Introduction of Serum, Toxoid and Vaccine into Muscle, Percutaneous Approach (ICD-10-PCS; 2019-01-06)
DX: O60.14X0 Preterm labor third trimester with preterm delivery third trimester, not applicable or unspecified (principal); O15.1 Eclampsia complicating labor; R56.9 Unspecified convulsions; O45.93 Premature separation of placenta, unspecified, third trimester; O99.52 Diseases of the respiratory system complicating childbirth; J45.909 Unspecified asthma, uncomplicated; O10.92 Unspecified pre-existing hypertension complicating childbirth; O42.913 Preterm premature rupture of membranes, unspecified as to length of time between rupture and onset of labor, third trimester; O99.354 Diseases of the nervous system complicating childbirth; Z3A.33 33 weeks gestation of pregnancy; Z37.0 Single live birth; Z23 Encounter for immunization
CPT/HCPCS: 36415; 59200; 76805; 80048; 80076; 80307; 81001; 82962; 83615; 83735; 85014; 85018; 85025; 85027; 85461; 85610; 85730; 86592; 86850; 86870; 86900; 86901; 88307; 90707; 96365; 96375; G0378; J0290; J0360; J0702; J2590; J3010; J3475; J7120

== ENCOUNTER → 2019-09-16 | Emergency (ER) | payer MEDICAID | LOC: ED 09:59 | DX: R50.9 Fever, unspecified (principal); Z53.21 Procedure and treatment not carried out due to patient leaving prior to being seen by health care provider ==

== ENCOUNTER 2019-11-12 23:29 | Emergency (ER) | payer MEDICAID ==
[2019-11-13 00:39] LABS: Hematocrit 36.9 % (30.3-42.9); Hemoglobin 12.2 gm/dl (10.1-14.3); Mean Corpuscular HGB Conc 33 % (30-34); Mean Corpuscular Volume 90 fl (79-97); Platelet Count 210 K/mm3 (140-440); Red Blood Count 4.09 M/mm3 (3.65-5.03); Red Cell Distribution Width 15.9 % (13.2-15.2)
[2019-11-13 00:54] LABS: Bacteria,Urine 1+ /HPF (Negative); Bilirubin,Urine NEG (Negative); Blood,Urine LG (Negative); Color,Urine Yellow (Yellow); Mucus,Urine FEW /HPF; Protein,Urine <15 mg/dL mg/dL (Negative); Urobilinogen,Urine < 2.0 mg/dL (<2.0)
--- NOTE | 2019-11-13 01:48 | Ultrasound Report ---
EXAMINATION: Obstetrical Ultrasound, 11/13/2019 INDICATION: Vaginal bleeding and cramping. COMPARISON: Obstetrical ultrasound, 11/09/2019 FINDINGS: Transvaginal and transabdominal imaging was performed. The uterus is normal in size measuring 8.4 x 5.2 x 5.7 cm. The endometrial complex measures a maximum thickness of 2 mm. No intrauterine is visualized. Complex hypoechoic mass or masslike area is again noted associated with the right adnexal region nyla uring a maximum of 2.2 cm. There is no associated vascularity. The left adnexal region appears within normal limits. No free pelvic fluid is identified. IMPRESSION: 1. No intrauterine is visualized. 2. Redemonstration of hypoechoic complex mass associated with the right adnexal region. This may repr esent a complicated cyst but is nonspecific and clinical correlation and continued follow-up is recom mended. The patient's hCG level is noted to have decreased since the recent previous study. Signer Name: Anya Escobedo MD Signed: 11/13/2019 1:44 AM Workstation Name: [id number]
[2019-11-13 02:15] LABS: Eosinophils % (Manual) 0 % (0.0-4.3); Total Cells Counted 100
[2019-11-13 02:16] LABS: Anisocytosis Few; Ovalocytes Few; Platelet Estimate Consistent w Auto
[2019-11-13] MEDS ORDERED: ACETAMINOPHEN 500 MG TAB PO ONE (02:35)
--- NOTE | 2019-11-13 05:40 | Emergency Department Report ---
ED Female HPI - General Chief complaint: Vaginal Bleeding Stated complaint: ABD CRAMPS/VAGINAL BLEEDING Source: patient Mode of arrival: Ambulatory Limitations: No Limitations - History of Present Illness Initial comments: Patient is a A2 29-year-old -[place] female who is approximately 4 weeks gestation who presented to the ED with complaint of persistent pelvic pain that radiates to the right lower quadrant area with persistent vaginal bleeding for the last 1 week. Patient states that the pain in the suprapubic and right lower quadrant area is constant and worsens with movement. 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 Patient states that she was initially evaluated in this ED 4 days ago for similar symptoms but left AMA without receiving her Rhogam injections as was previously advised. Patient states that the current symptoms are similar to the previous symptoms when she was initially evaluated this ED 4 days ago with no worsening symptoms. Patient denies fever, chills, nausea, vomiting, dizziness, syncope, chest pain, shortness of breath, dysuria, urinary frequency and urgency or vaginal discharge. MD Complaint: vaginal bleeding, pelvic pain -: Sudden, week(s) (1) Location: suprapubic, RLQ Radiation: non-radiating Severity scale (0 -10): 5 Quality: cramping, aching Consistency: intermittent Improves with: none Worsens with: movement Are you Now?: Yes (4 weeks gestation) Last Menstrual Period: 10/05/19 EDC: 07/11/20 Associated Symptoms: denies other symptoms, vaginal bleeding. denies: vaginal discharge, abdominal pain, nausea/vomiting, fever/chills, headaches, loss of appetite, dysuria, hematuria, rash, seizure, shortness of breath, syncope, weakness - Related Data Sexually active: Yes : 7 Para: 4 A: 2 Previous Rx's Medication Instructions Recorded Last Taken Type Sulfamethoxazole/Trimethoprim 1 each PO BID #14 tablet 07/14/17 Unknown Rx [Bactrim DS TAB] Lidocain2.5%/Prilocai2.5% [Emla] 5 gm TP ONCE PRN #1 tube 01/07/19 Unknown Rx NIFEdipine XL [Procardia Xl] 30 mg PO QDAY #2 tablet 01/07/19 Unknown Rx Allergies Allergy/AdvReac Type Severity Reaction Status Date / Time No Known Allergies Allergy Verified 08/30/16 12:13 ED Review of Systems ROS: Stated complaint: ABD CRAMPS/VAGINAL BLEEDING Other details as noted in HPI Constitutional: denies: chills, fever Eyes: denies: eye pain, eye discharge, vision change ENT: denies: ear pain, throat pain Respiratory: denies: cough, shortness of breath, wheezing Cardiovascular: denies: chest pain, palpitations Endocrine: no symptoms reported Gastrointestinal: abdominal pain (suprapubic pain). denies: nausea, diarrhea Genitourinary: abnormal menses (vaginal bleeding). denies: urgency, dysuria, discharge Musculoskeletal: denies: back pain, joint swelling, arthralgia Skin: denies: rash, lesions Neurological: denies: headache, weakness, paresthesias Psychiatric: denies: anxiety, depression Hematological/Lymphatic: denies: easy bleeding, easy bruising ED Past Medical Hx - Past Medical History Previous Medical History?: Yes Hx Hypertension: Yes (Gestational) Hx Heart Attack/AMI: No Hx Congestive Heart Failure: No Hx Diabetes: No Hx Deep Vein Thrombosis: No Hx Liver Disease: No Hx Renal Disease: No Hx Sickle Cell Disease: (trait only) Hx Seizures: Yes (01/04/2019 with ) Hx Asthma: Yes Hx COPD: No Additional medical history: anemia - Surgical History Past Surgical History?: No Hx Pacemaker: No Hx Internal Defibrillator: No - Social History Smoking Status: Never Smoker Substance Use Type: Marijuana - Medications Home Medications: Home Medications Medication Instructions Recorded Confirmed Last Taken Type Sulfamethoxazole/Trimethoprim 1 each PO BID #14 tablet 07/14/17 Unknown Rx [Bactrim DS TAB] Lidocain2.5%/Prilocai2.5% [Emla] 5 gm TP ONCE PRN #1 tube 01/07/19 Unknown Rx NIFEdipine XL [Procardia Xl] 30 mg PO QDAY #2 tablet 01/07/19 Unknown Rx ED Physical Exam - General Limitations: No Limitations General appearance: alert, in no apparent distress - Head Head exam: Present: atraumatic, normocephalic, normal inspection - Eye Eye exam: Present: normal appearance, PERRL, EOMI Pupils: Present: normal accommodation - ENT ENT exam: Present: normal exam, normal orophraynx, mucous membranes moist, TM's normal bilaterally, normal external ear exam - Neck Neck exam: Present: normal inspection, full ROM. Absent: tenderness - Respiratory Respiratory exam: Present: normal lung sounds bilaterally. Absent: respiratory distress, wheezes, rales, stridor, chest wall tenderness, accessory muscle use, decreased breath sounds - Cardiovascular Cardiovascular Exam: Present: regular rate, normal rhythm, normal heart sounds. Absent: systolic murmur, diastolic murmur, rubs, gallop - GI/Abdominal GI/Abdominal exam: Present: soft, tenderness (mild suprapubic tenderness), normal bowel sounds. Absent: guarding, rebound, hyperactive bowel sounds, hypoactive bowel sounds, organomegaly - Extremities Exam Extremities exam: Present: normal inspection, full ROM, normal capillary refill - Back Exam Back exam: Present: normal inspection, full ROM. Absent: tenderness, CVA tenderness (R), muscle spasm, paraspinal tenderness - Neurological Exam Neurological exam: Present: alert, oriented X3, CN II-XII intact, normal gait, reflexes normal - Psychiatric Psychiatric exam: Present: normal affect, normal mood - Skin Skin exam: Present: warm, dry, intact, normal color. Absent: rash ED Course Vital Signs 11/12/19 11/13/19 11/13/19 23:34 02:54 04:56 Temperature 98.7 F 97.9 F Pulse Rate 85 62 Respiratory 18 16 16 Rate Blood Pressure 130/66 122/68 O2 Sat by Pulse 100 100 Oximetry 11/13/19 05:05 Temperature 97.9 F Pulse Rate 65 Respiratory 16 Rate Blood Pressure 122/60 O2 Sat by Pulse 98 Oximetry ED Medical Decision Making - Lab Data Result diagrams: 11/13/19 00:25 - Radiology Data Radiology results: report reviewed, image reviewed Findings [facility] [address] [place] [address] Ultrasound Report Signed Patient: KRISTINA BATEMAN MR#: [id number] : 1990 Acct:[id number] Age/Sex: 29 / F ADM Date: 11/12/19 Loc: ED Attending Dr: Ordering Physician: SUHAS ROBERT Date of Service: 11/13/19 Procedure(s): US OB transvaginal Accession Number(s): [id number] cc: SUHAS ROBERT EXAMINATION: Obstetrical Ultrasound, 11/13/2019 INDICATION: Vaginal bleeding and cramping. COMPARISON: Obstetrical ultrasound, 11/09/2019 FINDINGS: Transvaginal and transabdominal imaging was performed. The uterus is normal in size measuring 8.4 x 5.2 x 5.7 cm. The endometrial complex measures a maximum thickness of 2 mm. No intrauterine is visualized. Complex hypoechoic mass or masslike area is again noted associated with the right adnexal region measuring a maximum of 2.2 cm. There is no associated vascularity. The left adnexal region appears within normal limits. No free pelvic fluid is identified. IMPRESSION: 1. No intrauterine is visualized. 2. Redemonstration of hypoechoic complex mass associated with the right adnexal region. This may represent a complicated cyst but is nonspecific and clinical correlation and continued follow-up is recommended. The patient's hCG level is noted to have decreased since the recent previous study. Signer Name: Anya Escobedo MD Signed: 11/13/2019 1:44 AM Workstation Name: [id number] Transcribed By: EB Dictated By: Anya Escobedo MD Electronically Authenticated By: Anya Escobedo MD Signed Date/Time: 11/13/19 0144 DD/ 013 TD/TT: - Medical Decision Making This is a 29-year-old A2 female who is approximately 4 weeks gestation who presented to the ED with persistent pelvic pain with vaginal bleeding for the last 1 week. Patient was initially evaluated in this ED about 4 days ago and had normal lab test results at the time but there was no IUP identified in the transvaginal ultrasound. During that visit, patient's ABO/RHO was O negative, and the patient was to Rhogam injection but signed out AMA prior to receiving this medications. Patient return to the ED complaining of persistent pelvic pain radiating to the right adnexal area with persistent vaginal bleeding and requesting for a Rhogam injection. During today's visit, lab test results were reviewed and are nonactionable including urinalysis but the repeat hCG Quant reduced to 44.34 vs 64.0 4 days ago. Repeat ABO/RHO was O negative. Transvaginal ultrasound shows no intrauterine , a redemonstration of hypoechoic complex mass associated with the right adnexal region which was previously identified 4 days ago during the transvaginal ultrasound. This may represent a complicated cyst but is nonspecific and clinical correlation and continued follow-up is recommended. Patient received Rhogam injection, and was also treated for pain in the ED. Patient is advised to return to the ED in 2 days or to her [facility] physician for repeat serial hCG Quant studies to ascertain viability of the . Patient was otherwise advised to return to the ED immediately if symptoms get worse. - Differential Diagnosis Threatened miscarriage; Ectopic ; Subchorionic bleed; UTI Critical care attestation.: If time is entered above; I have spent that time in minutes in the direct care of this critically ill patient, excluding procedure time. ED Disposition Clinical Impression: Vaginal bleeding during , Threatened miscarriage in early , Need for rhogam due to Rh negative mother Disposition: DC- TO HOME OR SELFCARE Is pt being admited?: No Does the pt Need Aspirin: No Condition: Stable Instructions: Threatened Miscarriage (ED), Abdominal Pain in (ED) Additional Instructions: Maintain a complete pelvic rest, medications with food, drink plenty of fluids and follow-up with the [facility] physician or return to the ED in 48 hours for serial hCG tests to ascertain they have viability of her since hCG Quant was only 44.34 during this visit when compared with the most recent hCG Quant of 64.0. The transvaginal ultrasound showed no intrauterine . Take Tylenol as needed for pain. Otherwise return to the ED immediately if symptoms get worse. Follow-up with your primary care physician in 7-10 days for further evaluation. Referrals: [facility] [Outside] - 3-5 Days Time of Disposition: 05:39 Print Language: MONTSERRATIAN
[2019-11-13 06:20] VITALS: BP 103/78
== END 2019-11-13 05:58 | disposition home or self-care (01) ==
LOC: ED 23:29
DX: O20.0 Threatened abortion (principal); Z3A.01 Less than 8 weeks gestation of pregnancy; O16.1 Unspecified maternal hypertension, first trimester; O99.011 Anemia complicating pregnancy, first trimester; D57.3 Sickle-cell trait; F12.10 Cannabis abuse, uncomplicated; Z79.899 Other long term (current) drug therapy
CPT/HCPCS: 36415; 76801; 76817; 81001; 84702; 85007; 85025; 86850; 86900; 86901; 96372; 99284; J2790